=== PATIENT | female | born 1965 | race Caucasian/White ===

== ENCOUNTER 2017-01-03 08:47 | Inpatient (IN) | payer MEDICARE, MEDICAID ==
--- NOTE | 2017-01-03 09:22 | ED ---
Psych HPI - General Source: patient, EMS, RN notes reviewed Mode of arrival: EMS Limitations: no limitations <Barry Godinez - Last Filed: 01/03/17 12:01> <Ry Brito - Last Filed: 01/07/17 15:04> - General Stated Complaint: Anxiety Time Seen by Provider: 01/03/17 08:48 - History of Present Illness Initial Comments: 51-year-old female presented emergency department via EMS for psychiatric services. Patient is having multiple complaints due to flight IDS. Patient states that she just needs to take her Xanax and OxyContin which he normally takes so she states she did not take it because she drank last night. Patient then tells me about her past history with her father, kids. Patient has no physical complaints at this time. Denies any alcohol use since last night. Patient did tell EMS that she smoked marijuana prior to being seen at [facility]. Patient denies headache, dizziness, chest pain, shortness breath, fever, chills. (Barry Godinez) - Related Data Home Medications Medication Instructions Recorded Confirmed ALPRAZolam [Xanax] 0.25 mg PO HS PRN 05/18/15 01/04/17 Albuterol Sulfate [Proair Hfa] 2 puff INHALATION RT-Q6H PRN 05/18/15 01/04/17 Beclomethasone Dipropionate [Qvar 1 puff INHALATION RT-BID 05/18/15 01/04/17 40 mcg/puff] Ibuprofen [Motrin] 400 mg PO Q8HR PRN 11/20/16 01/04/17 oxyCODONE HCL [oxyCODONE HCL ER] 30 mg PO Q12H 11/20/16 01/04/17 Cholecalciferol [Vitamin D3] 1,000 unit PO DAILY 01/03/17 01/04/17 Fish Oil/Dha/Epa [Fish Oil 1,200 1 cap PO DAILY 01/03/17 01/04/17 mg Fish Oil] Multivitamins, Thera [Multivitamin] 1 tab PO DAILY 01/03/17 01/04/17 Allergies Allergy/AdvReac Type Severity Reaction Status Date / Time prednisone AdvReac "KIDNEY Verified 01/04/17 14:30 PAIN" Review of Systems ROS Other: All systems not noted in ROS Statement are negative. <Barry Godinez - Last Filed: 01/03/17 12:01> ROS Other: All systems not noted in ROS Statement are negative. <Ry Brito - Last Filed: 01/07/17 15:04> ROS Statement: Those systems with pertinent positive or pertinent negative responses have been documented in the HPI. Past Medical History Past Medical History: Asthma, COPD Additional Past Medical History / Comment(s): PAD, states chronic pain on r side of body History of Any Multi-Drug Resistant Organisms: None Reported Past Surgical History: Hernia Repair, Hysterectomy, Orthopedic Surgery Additional Past Surgical History / Comment(s): RIGHT KNEE ARTHROSCOPY; ABDOMINAL AORTIC BYPASS, HIATAL HERNIA REPAIR Past Anesthesia/Blood Transfusion Reactions: No Reported Reaction Past Psychological History: No Psychological Hx Reported Smoking Status: Current every day smoker Past Alcohol Use History: None Reported, Occasional Past Drug Use History: Marijuana - Past Family History Mother Additional Family Medical History / Comment(s): ALS <Barry Godinez - Last Filed: 01/03/17 12:01> General Exam Limitations: no limitations General appearance: alert, in no apparent distress Head exam: Present: atraumatic, normocephalic, normal inspection Eye exam: Present: normal appearance, PERRL, EOMI. Absent: scleral icterus, conjunctival injection, periorbital swelling ENT exam: Present: normal exam, mucous membranes moist Neck exam: Present: normal inspection, full ROM. Absent: tenderness, meningismus, lymphadenopathy Respiratory exam: Present: normal lung sounds bilaterally. Absent: respiratory distress, wheezes, rales, rhonchi, stridor Cardiovascular Exam: Present: regular rate, normal rhythm, normal heart sounds. Absent: systolic murmur, diastolic murmur, rubs, gallop, clicks Neurological exam: Present: alert, oriented X3, CN II-XII intact Psychiatric exam: Present: anxious, manic, other (Flight of ideas) Skin exam: Present: warm, dry, intact, normal color. Absent: rash <Barry Godinez - Last Filed: 01/03/17 12:01> Medical Decision Making <Barry Godinez - Last Filed: 01/03/17 12:01> - Lab Data Result diagrams: 01/04/17 08:37 01/04/17 08:37 <Ry Brito - Last Filed: 01/07/17 15:04> - Medical Decision Making I saw this patient in conjunction with the physician child care center assistant director. I performed independent history and physical exam. Agree with case management. (Ry Brito) - Lab Data Lab Results 01/03/17 Range/Units 09:10 Urine Opiates Screen Not Detected (NotDetected) Ur Oxycodone Screen Detected H (NotDetected) Urine Methadone Screen Not Detected (NotDetected) Ur Propoxyphene Screen Not Detected (NotDetected) Ur Barbiturates Screen Not Detected (NotDetected) U Tricyclic Antidepress Not Detected (NotDetected) Ur Phencyclidine Scrn Not Detected (NotDetected) Ur Amphetamines Screen Not Detected (NotDetected) U Methamphetamines Scrn Not Detected (NotDetected) U Benzodiazepines Scrn Not Detected (NotDetected) Urine Cocaine Screen Not Detected (NotDetected) U Marijuana (THC) Screen Detected H (NotDetected) Disposition Time of Disposition: 12:02 <Barry Godinez - Last Filed: 01/03/17 12:01> <Ry Brito - Last Filed: 01/07/17 15:04> Clinical Impression: Manic bipolar I disorder Disposition: ADMITTED IP TO THIS [facility] Condition: Stable
[2017-01-03] MEDS ORDERED: MAGNESIUM HYDROXIDE 2,400 MG/10 ML CUP PO PRN (13:25)
[2017-01-03] MEDS ORDERED: ZIPRASIDONE 20 MG VIAL IM PRN (13:27)
[2017-01-03] MEDS: MULTIVITAMINS, THERA 1 EACH TAB PO SCH (14:27)
[2017-01-03] MEDS: oxyCODONE ER 15 MG TAB.ER.12H PO SCH (14:28)
[2017-01-03] MEDS: LORazepam 1 MG TAB PO PRN (14:28)
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
[2017-01-04] MEDS: oxyCODONE ER 15 MG TAB.ER.12H PO SCH ×3 (01:37→21:00)
[2017-01-04] MEDS ORDERED: BUDESONIDE 1 MG/2 ML NEBU INHALATION SCH (08:00)
[2017-01-04] MEDS: MULTIVITAMINS, THERA 1 EACH TAB PO SCH (08:32)
[2017-01-04 09:09] LABS: Basophils % (A) 1 %; CH 31.3; CHCM 32.5; Eosinophils # (A) 0.2 k/uL (0-0.7); Eosinophils % (A) 4 %; HCT 45.4 % (34.0-46.0); HDW 2.52; HGB 14.7 gm/dL (11.4-16.0); Luc # (Auto) 0.17; Luc % (Auto) 3; Lymphocytes # (A) 1.7 k/uL (1.0-4.8); Lymphocytes % (A) 31 %; MCH 31.3 pg (25.0-35.0); MCHC 32.3 g/dL (31.0-37.0); Mean Platelet Volume 6.8; Monocytes # (A) 0.6 k/uL (0-1.0); Monocytes % (A) 11 %; Neutrophils # (A) 2.8 k/uL (1.3-7.7); Neutrophils % (A) 51 %; RBC 4.69 m/uL (3.80-5.40); RDW 14.6 % (11.5-15.5); WBC 5.6 k/uL (3.8-10.6); WBC (Perox) 5.76
[2017-01-04 09:12] LABS: ALT 40 U/L (9-52); AST 26 U/L (14-36); Alkaline Phosphatase 77 U/L (38-126); Anion Gap 10 mmol/L; Blood Urea Nitrogen 11 mg/dL (7-17); Calcium 9.9 mg/dL (8.4-10.2); Carbon Dioxide 26 mmol/L (22-30); Chloride 105 mmol/L (98-107); Glucose 145 mg/dL (74-99); Non-African American GFR(MDRD) >60 (>60 ml/min/1.73 sqM); Potassium 4.4 mmol/L (3.5-5.1); Sodium 141 mmol/L (137-145); Total Bilirubin 0.7 mg/dL (0.2-1.3); Total Protein 6.8 g/dL (6.3-8.2)
[2017-01-04 09:16] LABS: MCV 96.8 fL (80.0-100.0)
--- NOTE | 2017-01-04 09:33 | P.PN ---
Progress Note - Text Interval history: The patient is found in the hallway she follows me to an interview room. She was admitted to the mental health unit yesterday by Dr. Otto. She is diagnosed with bipolar disorder most recent manic. In reviewing the note it appears the plan is to initiate lithium once lab work is completed. The patient was noted to be pressured have racing thoughts some recent paranoia and other symptoms of giuliana. She reports last night she slept 8 hours staff reported she slept 5. She states she is attending groups and eating meals. She is agreeable to starting lithium but only at a very small dose. Mental status exam: The patient is alert she is seated calmly she is hyperverbal her thought process is often circumstantial she can be tangential at times there is some pressured speech. She does appear animated during our conversation. She is cooperative. She is reporting no thoughts of harming herself or others. Insight and judgment are impaired as she under appreciates the impact of her manic symptoms on her function. There is no verbal or physical aggressiveness. She is endorsing no auditory or visual hallucinations. There may be some paranoid thoughts present. Plan: Lab work was drawn this morning only some results are available. We will go ahead and treat with lithium carbonate 150 mg twice daily. We will review the labs when they returned. She has no history of renal failure or kidney damage. Kidney function in October 2016 was normal. She requires continued hospitalization for her current symptoms of giuliana. We will monitor her for safety and encourage her participation in the milieu. We will monitor her vital signs.
[2017-01-04] MEDS: LITHIUM CARBONATE 150 MG CAP PO SCH ×2 (10:13→21:00)
[2017-01-04] MEDS: ACETAMINOPHEN TAB 325 MG TAB PO PRN ×2 (10:15→20:28)
[2017-01-04] MEDS: FOLIC ACID 1 MG TAB PO SCH (11:40)
[2017-01-04] MEDS: THIAMINE 100 MG TAB PO SCH (11:41)
[2017-01-04 14:28] VITALS: BMI 28.8
[2017-01-04] MEDS: NICOTINE 7MG/24HR PATCH TRANSDERM SCH (17:05)
--- NOTE | 2017-01-04 18:29 | P.HPIM ---
History of Present Illness H&P Date: 01/04/17 Chief Complaint: Alcohol withdrawal 51-year-old female was admitted to the hospital significant paranoia. Patient apparently has significant use of alcohol comes in to the hospital with an episode where patient was manic and had issues with her . Patient's last drink was apparently over 24 hours ago. At this time patient denies having any complaints denies using alcohol denies having any suspicions on her . This was all obtained from medical chart review. Patient currently has a history of COPD. Denies having any complaints of chest pressure difficulty breathing cough abdominal pain urinary urgency frequency nausea vomiting or diarrhea at this time. Patient was started on Ciwa protocol for alcohol withdrawal. At the time of my examination patient's ciwa score would 0. Denies having any suicidal or homicidal ideations at this time. Review of Systems All systems: negative (Noted in HPI) Past Medical History Past Medical History: Asthma, COPD Additional Past Medical History / Comment(s): PAD, states chronic pain on r side of body History of Any Multi-Drug Resistant Organisms: None Reported Past Surgical History: Hernia Repair, Hysterectomy, Orthopedic Surgery Additional Past Surgical History / Comment(s): RIGHT KNEE ARTHROSCOPY; ABDOMINAL AORTIC BYPASS, HIATAL HERNIA REPAIR Past Anesthesia/Blood Transfusion Reactions: No Reported Reaction Past Psychological History: No Psychological Hx Reported Smoking Status: Current every day smoker Past Alcohol Use History: None Reported, Occasional Past Drug Use History: Marijuana - Past Family History Mother Additional Family Medical History / Comment(s): ALS Medications and Allergies Home Medications Medication Instructions Recorded Confirmed Type ALPRAZolam [Xanax] 0.25 mg PO HS PRN 05/18/15 01/04/17 History Albuterol Sulfate [Proair Hfa] 2 puff INHALATION RT-Q6H PRN 05/18/15 01/04/17 History Beclomethasone Dipropionate [Qvar 1 puff INHALATION RT-BID 05/18/15 01/04/17 History 40 mcg/puff] Ibuprofen [Motrin] 400 mg PO Q8HR PRN 11/20/16 01/04/17 History oxyCODONE HCL [oxyCODONE HCL ER] 30 mg PO Q12H 11/20/16 01/04/17 History Cholecalciferol [Vitamin D3] 1,000 unit PO DAILY 01/03/17 01/04/17 History Fish Oil/Dha/Epa [Fish Oil 1,200 1 cap PO DAILY 01/03/17 01/04/17 History mg Fish Oil] Multivitamins, Thera [Multivitamin] 1 tab PO DAILY 01/03/17 01/04/17 History Allergies Allergy/AdvReac Type Severity Reaction Status Date / Time prednisone AdvReac "KIDNEY Verified 01/04/17 14:30 PAIN" Physical Exam Vitals: Vital Signs Temp Pulse Resp BP 01/04/17 01:39 98.4 F 99 18 158/85 Intake and Output 01/04/17 01/04/17 01/04/17 06:59 14:59 22:59 Other: Weight 73.93 kg Patient Weight 01/05/17 06:59 Weight 73.93 kg Physical exam Gen. appearance oriented 3 in no distress Neck is supple no JVD Lungs good air entry clear to auscultation no rhonchi or wheezing Heart S1-S2 heard regular rate and rhythm no murmurs appreciated Abdomen is soft nontender no organomegaly bowel sounds are intact Neurologically cranial nerves II-12 grossly intact no focal motor or sensory deficits noted Deep tendon reflexes within normal limits strength is 5 out of 5 in all 4 extremities Skin no abnormalities appreciated Results CBC & Chem 7: 01/04/17 08:37 01/04/17 08:37 Labs: Abnormal Lab Results - Last 24 Hours (Table) 01/04/17 Range/Units 08:37 Glucose 145 H (74-99) mg/dL Thrombosis Risk Factor Assmnt - Choose All That Apply Each Factor Represents 1 point: Age 41-60 years Other Risk Factors: No Other congenital or acquired thrombophilia - If yes, enter type in comment: No Thrombosis Risk Factor Assessment Total Risk Factor Score: 1 Thrombosis Risk Factor Assessment Level: Low Risk Assessment and Plan Plan: #1 bipolar disorder #2 history of COPD #3 chronic pain syndrome Plan Patient is medically stable. Does not appear to be overtly undergoing any withdrawals. Continue with ciwa scale when necessary. Continue Qvar for COPD maintenance. No further testing is necessary. Thank you for the consultation please call us with any questions. Patient will be seen intermittently as needed.
[2017-01-04] MEDS: BECLOMETHASONE DIP 80 MCG/PUFF INHALER INHALATION SCH (21:52)
[2017-01-04] MEDS: LORazepam 1 MG TAB PO PRN (22:53)
[2017-01-05] MEDS: LITHIUM CARBONATE 150 MG CAP PO SCH ×3 (08:24→21:29)
[2017-01-05] MEDS: MULTIVITAMINS, THERA 1 EACH TAB PO SCH ×2 (08:24→08:49)
[2017-01-05] MEDS: oxyCODONE ER 15 MG TAB.ER.12H PO SCH ×2 (08:25→21:30)
[2017-01-05] MEDS: NICOTINE 7MG/24HR PATCH TRANSDERM SCH (08:25)
[2017-01-05] MEDS: MAG HYDROX/AL HYDROX/SIMETH 30 ML CUP PO PRN (08:49)
[2017-01-05] MEDS: BECLOMETHASONE DIP 80 MCG/PUFF INHALER INHALATION SCH ×2 (08:55→22:11)
--- NOTE | 2017-01-05 10:42 | P.PN ---
Progress Note - Text Interval history: The patient is found in the hallway she follows me to an interview room. She reports some initial nausea with the lithium but states it has are be resolved. We discussed monitoring that further as it could be just a transitional side effect. We discussed the need to likely titrate the lithium further but she wants to maintain at this dose and she is acclimating to it. She spontaneously states she wants her mood to be stable. She reports sleeping all evening nursing document 6 hours. Mental status exam: The patient is alert she is observed throughout the morning going in and out of group and going to her room. She is dressed in her own clothing. She has showered. Speech is spontaneous she is quite verbose she will continue speaking until interrupted. She can be circumstantial and tangential. She describes concerns about her ex- people stealing from her etc. Insight and judgment impaired. She is reporting no suicidal or homicidal ideation. She is endorsing no hallucinations today. She is alert and oriented to person place and date. Overall she continues to demonstrate manic symptoms and appears suspicious. Plan: The patient will continue on the lithium carbonate and we'll likely need to be titrated further. Labs were reviewed BUN/creatinine creatinine are within normal limits. We will continue to encourage her full participation in the milieu. We will monitor her for safety. Vital signs reviewed blood pressure and pulse have been somewhat variable we will continue to follow.
[2017-01-05] MEDS: THIAMINE 100 MG TAB PO SCH (12:05)
[2017-01-05] MEDS: FOLIC ACID 1 MG TAB PO SCH (12:05)
[2017-01-05] MEDS: ACETAMINOPHEN TAB 325 MG TAB PO PRN (16:52)
[2017-01-05] MEDS: LORazepam 1 MG TAB PO PRN (21:30)
[2017-01-06] MEDS: oxyCODONE ER 15 MG TAB.ER.12H PO SCH ×2 (08:01→19:12)
[2017-01-06] MEDS: NICOTINE 7MG/24HR PATCH TRANSDERM SCH (09:09)
[2017-01-06] MEDS: MULTIVITAMINS, THERA 1 EACH TAB PO SCH (09:10)
[2017-01-06] MEDS: LITHIUM CARBONATE 150 MG CAP PO SCH ×2 (09:10→21:18)
[2017-01-06] MEDS: BECLOMETHASONE DIP 80 MCG/PUFF INHALER INHALATION SCH ×2 (09:21→21:12)
[2017-01-06] MEDS: FOLIC ACID 1 MG TAB PO SCH (12:27)
[2017-01-06] MEDS: THIAMINE 100 MG TAB PO SCH (12:27)
[2017-01-06] MEDS: ACETAMINOPHEN TAB 325 MG TAB PO PRN (12:27)
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
[2017-01-06] MEDS: ALBUTEROL INHALER 60 PUFF/8 GM INHALER INHALATION PRN ×2 (16:25→21:11)
[2017-01-06] MEDS: LORazepam 1 MG TAB PO PRN (21:18)
[2017-01-06] MEDS: MAG HYDROX/AL HYDROX/SIMETH 30 ML CUP PO PRN (23:12)
[2017-01-07] MEDS: oxyCODONE ER 15 MG TAB.ER.12H PO SCH ×2 (08:10→20:22)
[2017-01-07] MEDS: LITHIUM CARBONATE 150 MG CAP PO SCH ×2 (08:10→20:21)
[2017-01-07] MEDS: NICOTINE 7MG/24HR PATCH TRANSDERM SCH (08:10)
[2017-01-07] MEDS: MULTIVITAMINS, THERA 1 EACH TAB PO SCH (08:11)
[2017-01-07] MEDS ORDERED: LITHIUM CARBONATE 150 MG CAP PO STA (09:21)
[2017-01-07] MEDS: BECLOMETHASONE DIP 80 MCG/PUFF INHALER INHALATION SCH ×2 (09:28→21:01)
[2017-01-07] MEDS: FOLIC ACID 1 MG TAB PO SCH (12:01)
[2017-01-07] MEDS: ACETAMINOPHEN TAB 325 MG TAB PO PRN (12:01)
[2017-01-07] MEDS: THIAMINE 100 MG TAB PO SCH (12:03)
--- NOTE | 2017-01-07 12:31 | P.PN ---
Progress Note - Text SUBJECTIVE: She denied problems or concerns other than wishing to be discharged. She talked about her her need to resume her life and "find a job." She perseverated on her concerns with her ex-. During the team meeting social services aide described the family meeting from Friday. The meeting was essentially unproductive because the patient was hyperverbal and paranoid. Her daughter denied problems at the home and that the patient's ex- has been stealing and harassing the patient. The social services aide described the patient as having pressured speech, paranoia and tangential thinking. She was more receptive to changes in medication and agreed to an increase in lithium from 150 mg to 300 mg twice a day. OBJECTIVE: She presented as a slightly disheveled appearing 51-year-old woman who was pleasant on approach. She maintained eye contact and attended to interview. She had a bright facial expression. She showed no abnormality of psychomotor activity. Specifically she was not agitated or restless. Her speech was rapid with increased rhythm but normal volume. She had no articulation difficulty. Her affect was elevated and inappropriate to circumstances. She denied suicidal ideation or wishes. She denied depressive cognitions such as hopelessness, helplessness or worthlessness. She ruminated about her ex- and continues to express the belief that he had been stealing from her. She did not express ideas reference. Her thinking was abstract. Associations were coherent and logical. She demonstrated flight of ideas. She denied hallucinations and did not appear to responding to internal stimuli. ASSESSMENT: She continues demonstrate signs and symptoms of hypomania. She has limited insight or understanding of her illness and need for continued mental health treatment. However, she is more receptive to changes in medication and agreed to increase at a dose of lithium. PLAN: Continue inpatient hospitalization due to hypomania and impairment of judgment and thinking. Increase lithium to 300 mg by mouth twice a day. Obtain lithium level at steady state. Encouraged continued inpatient hospitalization; consider involuntary hospitalization if she submits a 3 day notice. Consider an antipsychotic such as Abilify if her hypomania does not resolve with lithium.
[2017-01-07] MEDS: traMADol 50 MG TAB PO PRN (14:08)
--- NOTE | 2017-01-07 15:22 | PN ---
I was reconsulted to see the patient for pain management and the patient is admitted to psychiatric facility for bipolar disorder and possible agitation and psychotic episodes. Patient is complaining of pain everywhere in the body. Patient appears to have chronic pain syndrome and patient is on opiates at this point of time which are not really recommended for chronic pain syndrome. Patient in the past did not tolerate Cymbalta apparently and the ideal medications were chronic pain syndrome. Her neuropathic medications including medication that helped neuropathic pain including Cymbalta or imipramine related medications along with NSAIDs. ( ) Patient is asking for cold and hot compresses which can be done. I will order tramadol for pain but patient is also on ibuprofen. Patient was asked not to take both of the medications, had higher doses on the same day and I do not believe even Tramadol will help her much because of her chronic pain syndrome and opiate dependence. REVIEW OF SYSTEMS: GENERAL: As described in HPI. CARDIOVASCULAR: No chest pain, no orthopnea, no PND, no palpitations. PULMONARY: Denied any shortness of breath. No cough or hemoptysis. GASTROINTESTINAL: No diarrhea, nausea or vomiting. No abdominal pain. Normoactive bowel sounds. NEUROLOGIC: No headaches, no weakness, no numbness. Medications were reviewed. PHYSICAL EXAMINATION: VITAL SIGNS: Temperature 97.8, pulse of 61, respiratory rate of 16, blood pressure 152/67, saturating at 95% on room air. GENERAL: The patient is alert and oriented x3, not in any acute distress. Well developed, well nourished. HEENT: Pupils are round and equally reacting to light. EOMI. No scleral icterus. No conjunctival pallor. Normocephalic, atraumatic. No pharyngeal erythema. No thyromegaly. CARDIOVASCULAR: S1 and S2 present. No murmurs, rubs, or gallops. PULMONARY: Chest is clear to auscultation, no wheezing or crackles. ABDOMEN: Soft, nontender, nondistended, normoactive bowel sounds. No palpable organomegaly. MUSCULOSKELETAL: No joint swelling or deformity. EXTREMITIES: No cyanosis, clubbing, or pedal edema. NEUROLOGICAL: Gross neurological examination did not reveal any focal deficits. SKIN: No rashes. Patient is not on ibuprofen but because of that, patient can take tramadol. Patient is already on Tylenol. LABORATORY DATA: Previous lab data was reviewed. ASSESSMENT AND PLAN: 1. Chronic pain syndrome. Will add tramadol, cold compresses and hot compresses. 2. History of chronic obstructive pulmonary disease without any acute exacerbation. 3. Bipolar disorder, management as per Primary Service.
[2017-01-07] MEDS: ALBUTEROL INHALER 60 PUFF/8 GM INHALER INHALATION PRN ×2 (16:36→21:00)
[2017-01-08] MEDS: traMADol 50 MG TAB PO PRN ×2 (01:45→17:49)
[2017-01-08] MEDS: LITHIUM CARBONATE 150 MG CAP PO SCH ×2 (08:52→20:20)
[2017-01-08] MEDS: MULTIVITAMINS, THERA 1 EACH TAB PO SCH (08:52)
[2017-01-08] MEDS: oxyCODONE ER 15 MG TAB.ER.12H PO SCH ×2 (08:52→20:20)
[2017-01-08] MEDS: NICOTINE 7MG/24HR PATCH TRANSDERM SCH (08:52)
[2017-01-08] MEDS: BECLOMETHASONE DIP 80 MCG/PUFF INHALER INHALATION SCH ×2 (09:05→19:10)
[2017-01-08] MEDS: ALBUTEROL INHALER 60 PUFF/8 GM INHALER INHALATION PRN ×3 (09:05→19:10)
--- NOTE | 2017-01-08 11:57 | P.PN ---
Progress Note - Text SUBJECTIVE: I reviewed the medical record, interviewed Ms. Montanez and discussed her treatment during team meeting. She was expecting to be discharged today. She talked about several issues. Her home needs repair and that if she doesn't have the repairs completed she will "wastes money" with increased heating cost. She has doctor's appointments to keep and she has several bills to pay. She talked about credit card expenses including $3000 on interfere when traveled she flew from [place] to [place] and then to [facility]. She incurred penalties from [facility] to [place] round-trip because she canceled the return trip to go to [place]. She went to [place] because her daughter had gave "December 26." However she never visited with her daughter. When I attempted to clarify the reason she talked about dancing at a club and be unable to find a taxi to visit with her daughter and new grandchild. She left [place] without having visited with the new granddaughter. She was disappointed when I did not agree with her request to be discharged but appeared to understand my explanation that we just increased dose of lithium and we will need to monitor her response. She denied side effects to the increased dose of lithium. OBJECTIVE: She was casually dressed and groomed. She was pleasant on approach and appeared to attend to the interview. She was able to remain seated throughout the interview. She was not agitated or restless. Her speech was spontaneous. The rate was slightly increase but she was not hyperverbal. Her affect was stable and appropriate. Unlike in prior meeting she was not elated or euphoric. She denied suicidal ideation or wishes. She denied feelings of hopelessness or helplessness. She did not express ideas reference or paranoid ideation. Her thinking was concrete, digressive and at times disjointed. She denied hallucinations and did not appear to be responding to internal stimuli. ASSESSMENT: She appears less restless, euphoric and hyperverbal. She continues to show some flight of ideas but no grandiose beliefs. PLAN: Continue lithium 300 mg by mouth twice a day, obtain lithium level at steady state, encourage continued participation in therapeutic groups and activities and evaluate clinical status response to treatment on a daily basis.
[2017-01-08] MEDS: FOLIC ACID 1 MG TAB PO SCH (12:42)
[2017-01-08] MEDS: THIAMINE 100 MG TAB PO SCH (12:43)
[2017-01-08] MEDS: LORazepam 1 MG TAB PO PRN (21:25)
[2017-01-09] MEDS: traMADol 50 MG TAB PO PRN ×3 (00:56→18:35)
[2017-01-09] MEDS: LITHIUM CARBONATE 150 MG CAP PO SCH ×2 (08:03→20:16)
[2017-01-09] MEDS: oxyCODONE ER 15 MG TAB.ER.12H PO SCH ×2 (08:03→20:17)
[2017-01-09] MEDS: NICOTINE 7MG/24HR PATCH TRANSDERM SCH (10:23)
[2017-01-09] MEDS: MULTIVITAMINS, THERA 1 EACH TAB PO SCH (10:24)
[2017-01-09] MEDS: ALBUTEROL INHALER 60 PUFF/8 GM INHALER INHALATION PRN ×2 (11:31→21:25)
[2017-01-09] MEDS: BECLOMETHASONE DIP 80 MCG/PUFF INHALER INHALATION SCH ×2 (11:33→21:25)
[2017-01-09] MEDS: FOLIC ACID 1 MG TAB PO SCH (12:20)
[2017-01-09] MEDS: THIAMINE 100 MG TAB PO SCH (12:21)
--- NOTE | 2017-01-09 14:12 | P.PN ---
Progress Note - Text SUBJECTIVE: Coleen denied problems or concerns. She stated she feels calmer and "more focused". She denied side effects to lithium. She expressed appreciation towards [facility] units treatment staff and alleged that she had known about this service she was present for treatment "several months ago." OBJECTIVE: She was neatly dressed and groomed. She is pleasant on approach and maintained eye contact. She is able to attend forward to the interview. She had a blunted but bright facial expression. She showed no abnormality of psychomotor activity. Her speech had a normal rate, rhythm and volume. Her affect was stable and appropriate to her mood. Her thinking was organized, coherent and goal directed. She denied suicidal ideation or wishes. She denied depressive cognitions such as hopelessness, helplessness and worthlessness. She did not express ideas reference or paranoid ideation. She denied hallucinations and did not appear to be responding to internal stimuli. ASSESSMENT: She appears minimally mentally ill and showed a moderate response to treatment with lithium 600 mg by mouth twice a day. She has no side effects to current dose of lithium. PLAN: Obtain lithium level tomorrow morning and discuss adjusting dose accordingly. Discharge home tomorrow with follow-up through [facility] (we discussed need for psychiatric aftercare during treatment team meeting today).
[2017-01-09 20:19] VITALS: RESP 16
[2017-01-09] MEDS: LORazepam 1 MG TAB PO PRN (21:45)
[2017-01-10] MEDS: traMADol 50 MG TAB PO PRN ×2 (03:10→09:30)
[2017-01-10 07:12] VITALS: BP 137/72; PULSE 69; TEMP 98.1
[2017-01-10] MEDS: MULTIVITAMINS, THERA 1 EACH TAB PO SCH ×2 (08:35→08:42)
[2017-01-10] MEDS: oxyCODONE ER 15 MG TAB.ER.12H PO SCH (08:35)
[2017-01-10] MEDS: NICOTINE 7MG/24HR PATCH TRANSDERM SCH (08:35)
[2017-01-10] MEDS: LITHIUM CARBONATE 150 MG CAP PO SCH (09:29)
[2017-01-10] MEDS: BECLOMETHASONE DIP 80 MCG/PUFF INHALER INHALATION SCH (10:24)
[2017-01-10] MEDS: ALBUTEROL INHALER 60 PUFF/8 GM INHALER INHALATION PRN (10:24)
[2017-01-10] MEDS: THIAMINE 100 MG TAB PO SCH (11:55)
[2017-01-10] MEDS: FOLIC ACID 1 MG TAB PO SCH (11:55)
--- NOTE | 2017-01-10 14:32 | P.DS ---
Providers Date of admission: 01/03/17 13:21 Attending physician: Tad Welsh MD Consults: 01/03/17 13:33 Consult Physician Routine Consulting Provider: Ever Bowden Consult Reason/Comments: H and P Do you want consulting provider notified?: Yes 01/06/17 15:41 Consult Physician Routine Consulting Provider: Alfredo Blair Consult Reason/Comments: continued pain Do you want consulting provider notified?: Yes Primary care physician: Rosi Grove - Discharge Diagnosis(es) (1) Bipolar disorder, most recent episode manic Current Visit: Yes Status: Resolved Priority: High (2) COPD (chronic obstructive pulmonary disease) case management patient Current Visit: Yes Status: Chronic Priority: Medium (3) Chronic pain disorder Current Visit: Yes Status: Chronic Priority: Medium Hospital Course: She has a 51-year-old [place] female who presented to the unit under a petition completed by her daughter but signed voluntarily. She presented with increases of anxiety, paranoia and suspiciousness. She had signs and symptoms consistent with hypomania including decreased need for sleep , racing thoughts, distractibility, paranoid beliefs towards her ex- to the point where she filed a personal protective order against him. During the mental status examination she was hyperverbal, circumstantial and demonstrated pressured speech. She has history of alcohol use and chronic use of prescribed opiate pain medication. Her admission diagnoses included bipolar disorder manic with psychotic features and chronic pain disorder. She agreed to a trial of lithium carbonate and Dr. Regan start her on 150 mg twice a day. We provided a biopsychosocial assessment. The lending consultant reverberatory furnace supervisor completed the physical exam and medical history. The lending consultant diagnosed COPD and chronic pain syndrome. He recommended to continue the prehospital dose of ProAir HFA, Qvar, Motrin, oxycodone, vitamin D3, fish oil and multivitamins. We increased dose of lithium carbonate to 300 mg by mouth twice a day. She showed a decrease in signs and symptoms of hypomania. Her serum lithium level on admission was 0.4. At time of discharge denied thoughts of or suicide. She was not hyperverbal, restless or impulsive. She did not express grandiose or delusional thoughts or beliefs. She expressed a willingness to continue with outpatient treatment and agreed to work with her outpatient provider to monitor and titrate the dose of lithium. The social service worker to arrange for follow-up [facility] and she has appointment with her psychiatric nurse practitioner. Patient Condition at Discharge: Stable Plan - Discharge Summary New Discharge Prescriptions: Calzada Carbonate 300 mg PO BID 30 Days Nicotine 7Mg/24Hr Patch [Habitrol] 1 patch TRANSDERM DAILY 14 Days Discharge Medication List Albuterol Sulfate [Proair Hfa] 2 puff INHALATION RT-Q6H PRN 05/18/15 [History] Beclomethasone Dipropionate [Qvar 40 mcg/puff] 1 puff INHALATION RT-BID [History] Ibuprofen [Motrin] 400 mg PO Q8HR PRN 11/20/16 [History] oxyCODONE HCL [oxyCODONE HCL ER] 30 mg PO Q12H 11/20/16 [History] Cholecalciferol [Vitamin D3] 1,000 unit PO DAILY 01/03/17 [History] Fish Oil/Dha/Epa [Fish Oil 1,200 mg Fish Oil] 1 cap PO DAILY 01/03/17 [History] Multivitamins, Thera [Multivitamin] 1 tab PO DAILY 01/03/17 [History] Calzada Carbonate 300 mg PO BID 30 Days 01/10/17 [Rx] Nicotine 7Mg/24Hr Patch [Habitrol] 1 patch TRANSDERM DAILY 14 Days 01/10/17 [Rx] Follow up Appointment(s)/Referral(s): [facility] [Outside] - 01/14/17 10:00 am (Joseline Jack ) Rosi Grove MD [Primary Care Provider] - 1-2 days Discharge Disposition: HOME SELF-CARE
== END 2017-01-10 15:27 | disposition home or self-care (01) | DRG 885 ==
LOC: EC 08:47 → SUPCPDRO 08:47 → 3MHU 13:21
PROVIDERS: ADMIT Psychiatry & Neurology Psychiatry; ATTEND Psychiatry & Neurology Psychiatry
DX: F31.9 Bipolar disorder, unspecified (principal); F11.20 Opioid dependence, uncomplicated; F10.239 Alcohol dependence with withdrawal, unspecified; F12.90 Cannabis use, unspecified, uncomplicated; F17.200 Nicotine dependence, unspecified, uncomplicated; F41.9 Anxiety disorder, unspecified; G89.4 Chronic pain syndrome; J44.9 Chronic obstructive pulmonary disease, unspecified; J45.909 Unspecified asthma, uncomplicated; Z81.8 Family history of other mental and behavioral disorders; Z91.410 Personal history of adult physical and sexual abuse; Z79.899 Other long term (current) drug therapy
CPT/HCPCS: 80053; 80178; 80306; 82075; 84443; 85025; 94640; 99285

== ENCOUNTER 2018-03-19 17:29 | Observation (INO) | payer MEDICARE, OTHER ==
[2018-03-19] MEDS ORDERED: SODIUM CHLORIDE 0.9% 1,000 ML IV STA (17:39)
[2018-03-19] MEDS ORDERED: methylPREDNISolone SOD SUCCI 125 MG/2 ML VIAL IV STA (17:39)
[2018-03-19] MEDS ORDERED: IPRATROPIUM-ALBUTEROL 3 ML NEB INHALATION STA (17:39)
--- NOTE | 2018-03-19 17:44 | ED ---
SOB HPI <Shankar Lu - Last Filed: 03/19/18 19:00> - General Source: patient, RN notes reviewed, old records reviewed Mode of arrival: EMS Limitations: no limitations <Renu Cochran - Last Filed: 03/19/18 19:16> - General Chief Complaint: Shortness of Breath Stated Complaint: Diff Breathing Time Seen by Provider: 03/19/18 17:35 - History of Present Illness Initial Comments: Patient is a 32-year-old female with history of smoking persist emergency Department chief complaint difficulty breathing. She was diagnosed with pneumonia 2 weeks ago. She was on 10 days of Levaquin. She noticed that last Friday. She reports that over the weekend she started to feel worse. She states that yesterday she returned her primary care providers and they started her on steroids. She is on day 2 of a Medrol Dosepak. She reports that she was having severe difficulty in breathing and her at-home nebulizer treatments were not working. Patient states that she's never had a be intubated or had a BiPAP before. Denies fever or chills. She reports that her sputum is been white frothy. (Renu Cochran) - Related Data Home Medications Medication Instructions Recorded Confirmed Ibuprofen [Motrin] 800 mg PO Q8HR PRN 11/20/16 03/19/18 Cholecalciferol [Vitamin D3] 1,000 unit PO DAILY 01/03/17 03/19/18 Fish Oil/Dha/Epa [Fish Oil 1,200 1 cap PO DAILY 01/03/17 03/19/18 mg Fish Oil] Multivitamins, Thera [Multivitamin 1 tab PO DAILY 01/03/17 03/19/18 (formulary)] ALPRAZolam [Xanax] 0.25 mg PO HS 03/19/18 03/19/18 Albuterol Inhaler [Ventolin Hfa 2 puff INHALATION RT-Q6H PRN 03/19/18 03/19/18 Inhaler] Fluticasone Propionate [Flovent 1 puff INHALATION RT-DAILY 03/19/18 03/19/18 Hfa 44 mcg] Garlic 1 tab PO DAILY 03/19/18 03/19/18 Melatonin 5 mg PO HS 03/19/18 03/19/18 oxyCODONE HCL [oxyCODONE HCL ER] 15 mg PO Q12H 03/19/18 03/19/18 Allergies Allergy/AdvReac Type Severity Reaction Status Date / Time prednisone AdvReac "KIDNEY Verified 03/19/18 19:06 PAIN" Review of Systems ROS Other: All systems not noted in ROS Statement are negative. <Shankar Lu - Last Filed: 03/19/18 19:00> ROS Other: All systems not noted in ROS Statement are negative. <Renu Cochran - Last Filed: 03/19/18 19:16> ROS Statement: Those systems with pertinent positive or pertinent negative responses have been documented in the HPI. Past Medical History Past Medical History: Asthma, COPD, Pneumonia Additional Past Medical History / Comment(s): PAD, states chronic pain on r side of body History of Any Multi-Drug Resistant Organisms: None Reported Past Surgical History: Hernia Repair, Hysterectomy, Orthopedic Surgery Additional Past Surgical History / Comment(s): RIGHT KNEE ARTHROSCOPY; ABDOMINAL AORTIC BYPASS, HIATAL HERNIA REPAIR Past Anesthesia/Blood Transfusion Reactions: No Reported Reaction Past Psychological History: No Psychological Hx Reported Smoking Status: Current every day smoker Past Alcohol Use History: None Reported, Occasional Past Drug Use History: Marijuana - Past Family History Mother Additional Family Medical History / Comment(s): ALS <Renu Cochran - Last Filed: 03/19/18 19:16> General Exam <Shankar Lu - Last Filed: 03/19/18 19:00> Limitations: no limitations General appearance: alert Head exam: Present: atraumatic, normocephalic, normal inspection Eye exam: Present: normal appearance, PERRL, EOMI, conjunctival injection. Absent: scleral icterus, periorbital swelling ENT exam: Present: normal exam, mucous membranes moist Neck exam: Present: normal inspection. Absent: tenderness, meningismus, lymphadenopathy Respiratory exam: Present: wheezes (Diffuse wheezing), rhonchi, decreased breath sounds. Absent: normal lung sounds bilaterally, respiratory distress, rales Cardiovascular Exam: Present: regular rate, normal rhythm, normal heart sounds. Absent: systolic murmur, diastolic murmur, rubs, gallop, clicks GI/Abdominal exam: Present: soft, normal bowel sounds. Absent: distended, tenderness, guarding, rebound, rigid Extremities exam: Present: normal inspection, full ROM, normal capillary refill. Absent: tenderness, pedal edema, joint swelling, calf tenderness Back exam: Present: normal inspection Neurological exam: Present: alert, oriented X3, CN II-XII intact Psychiatric exam: Present: normal affect, normal mood Skin exam: Present: warm, dry, intact, normal color. Absent: rash <Renu Cochran - Last Filed: 03/19/18 19:16> - General Exam Comments Initial Comments: 52-year-old female. Appears in obvious respiratory distress. Tripoding position. (Renu Cochran) Course <Shankar Lu - Last Filed: 03/19/18 19:00> <Renu Cochran - Last Filed: 03/19/18 19:16> Vital Signs 03/19/18 03/19/18 03/19/18 17:30 17:34 17:49 Temperature 97.0 F L Pulse Rate 105 H 92 Respiratory 28 H 24 Rate Blood Pressure 162/85 O2 Sat by Pulse 97 Oximetry 03/19/18 03/19/18 03/19/18 17:50 18:06 18:40 Temperature Pulse Rate 87 82 85 Respiratory 24 22 Rate Blood Pressure 148/70 147/76 O2 Sat by Pulse 96 98 Oximetry - Reevaluation(s) Reevaluation #1: 03/19/18 18:35 Patient was reevaluated this time is resting comfortably in bed. She still on 4 L of oxygen. She reports that her breathing is much improved after a double DuoNeb treatment. Patient continues to have wheezing but is moving air throughout bilateral lung gutierrez. (Renu Cochran) Medical Decision Making - Lab Data Result diagrams: 03/19/18 17:00 03/19/18 17:00 <Shankar Lu - Last Filed: 03/19/18 19:00> - Lab Data Result diagrams: 03/19/18 17:00 03/19/18 17:00 <Renu Cochran - Last Filed: 03/19/18 19:16> - Medical Decision Making Medical decision making; is a 52-year-old female with history of COPD but continues to smoke. The patient can emergency room with shortness of breath. Her home updraft treatments more working. She received several updrafts here. One the O2 was removed pulse ox dropped. Chest x-ray revealed reviewed by radiologist no signs of pneumonia with her signs of COPD type changes. I auscultated the patient's lungs still mild wheezing. The patient be admitted for acute exacerbation of COPD. I spoke with Dr. Quigley on-call for Dr.aaron Easley. Dr. Lu (Shankar Lu) 52-year-old female history smoking presents with shortness of breath. Patient was given IV fluids, IV steroids and laboratory. She did appear to be in moderate respiratory distress and she arrived. She is tripoding. Patient received a double DuoNeb treatment did have some improvement. Patient continued to wheeze however. I removed the oxygen and her O2 sats did change a 95% on room air. Patient's chest x-ray was read to be normal. Lab work was reviewed and unremarkable. Normal wall EKG no evidence of elevated troponin. Patient informed of all these results. Discussed with the concern with scabies acute COPD exacerbation and like to the patient for IV steroids. Patient agrees to admission. All questions answered and return parameters were discussed. (Renu Cochran) - Lab Data Lab Results 03/19/18 03/19/18 03/19/18 Range/Units 17:00 17:00 17:00 WBC 10.3 (3.8-10.6) k/uL RBC 4.94 (3.80-5.40) m/uL Hgb 15.3 (11.4-16.0) gm/dL Hct 45.4 (34.0-46.0) % MCV 91.8 (80.0-100.0) fL MCH 31.0 (25.0-35.0) pg MCHC 33.8 (31.0-37.0) g/dL RDW 13.1 (11.5-15.5) % Plt Count 290 (150-450) k/uL Neutrophils % 71 % Lymphocytes % 23 % Monocytes % 5 % Eosinophils % 1 % Basophils % 0 % Neutrophils # 7.3 (1.3-7.7) k/uL Lymphocytes # 2.4 (1.0-4.8) k/uL Monocytes # 0.5 (0-1.0) k/uL Eosinophils # 0.1 (0-0.7) k/uL Basophils # 0.0 (0-0.2) k/uL PT (9.0-12.0) sec INR (<1.2) APTT (22.0-30.0) sec Sodium 141 (137-145) mmol/L Potassium 4.4 (3.5-5.1) mmol/L Chloride 106 (98-107) mmol/L Carbon Dioxide 22 (22-30) mmol/L Anion Gap 13 mmol/L BUN 13 (7-17) mg/dL Creatinine 0.50 L (0.52-1.04) mg/dL Est GFR (CKD-EPI)AfAm >90 (>60 ml/min/1.73 sqM) Est GFR (CKD-EPI)NonAf >90 (>60 ml/min/1.73 sqM) Glucose 151 H (74-99) mg/dL Plasma Lactic Acid Kalpesh (0.7-2.0) mmol/L Calcium 9.8 (8.4-10.2) mg/dL Magnesium 1.9 (1.6-2.3) mg/dL Total Bilirubin 0.3 (0.2-1.3) mg/dL AST 17 (14-36) U/L ALT 20 (9-52) U/L Alkaline Phosphatase 88 (38-126) U/L Total Creatine Kinase 35 (30-135) U/L CK-MB (CK-2) 0.8 (0.0-2.4) ng/mL CK-MB (CK-2) Rel Index 2.3 Troponin I <0.012 (0.000-0.034) ng/mL NT-Pro-B Natriuret Pep pg/mL Total Protein 7.2 (6.3-8.2) g/dL Albumin 4.4 (3.5-5.0) g/dL 03/19/18 03/19/18 03/19/18 Range/Units 17:00 17:00 17:00 WBC (3.8-10.6) k/uL RBC (3.80-5.40) m/uL Hgb (11.4-16.0) gm/dL Hct (34.0-46.0) % MCV (80.0-100.0) fL MCH (25.0-35.0) pg MCHC (31.0-37.0) g/dL RDW (11.5-15.5) % Plt Count (150-450) k/uL Neutrophils % % Lymphocytes % % Monocytes % % Eosinophils % % Basophils % % Neutrophils # (1.3-7.7) k/uL Lymphocytes # (1.0-4.8) k/uL Monocytes # (0-1.0) k/uL Eosinophils # (0-0.7) k/uL Basophils # (0-0.2) k/uL PT 10.1 (9.0-12.0) sec INR 1.0 (<1.2) APTT 22.1 (22.0-30.0) sec Sodium (137-145) mmol/L Potassium (3.5-5.1) mmol/L Chloride (98-107) mmol/L Carbon Dioxide (22-30) mmol/L Anion Gap mmol/L BUN (7-17) mg/dL Creatinine (0.52-1.04) mg/dL Est GFR (CKD-EPI)AfAm (>60 ml/min/1.73 sqM) Est GFR (CKD-EPI)NonAf (>60 ml/min/1.73 sqM) Glucose (74-99) mg/dL Plasma Lactic Acid Kalpesh 1.6 (0.7-2.0) mmol/L Calcium (8.4-10.2) mg/dL Magnesium (1.6-2.3) mg/dL Total Bilirubin (0.2-1.3) mg/dL AST (14-36) U/L ALT (9-52) U/L Alkaline Phosphatase (38-126) U/L Total Creatine Kinase (30-135) U/L CK-MB (CK-2) (0.0-2.4) ng/mL CK-MB (CK-2) Rel Index Troponin I (0.000-0.034) ng/mL NT-Pro-B Natriuret Pep 198 pg/mL Total Protein (6.3-8.2) g/dL Albumin (3.5-5.0) g/dL 03/19/18 19:02 EKG shows sinus rhythm with PVCs. Possible left atrial enlargement. Borderline EKG. Ventricular rate of 81 bpm. TX interval is 144 ms. QRS duration 88 ms. QT QTc is 364/422 ms. (Renu Cochran) Disposition <Shankar Lu - Last Filed: 03/19/18 19:00> Is patient prescribed a controlled substance at d/c from ED?: No If prescribed controlled substance>3 days was MAPS reviewed?: No When asked, does pt state using other controlled substances?: No Time of Disposition: 19:16 <Renu Cochran - Last Filed: 03/19/18 19:16> Clinical Impression: COPD exacerbation Disposition: ADMITTED IP TO THIS HOSP Condition: Stable Referrals: Joaquim Easley MD [Primary Care Provider] - 1-2 days
[2018-03-19 17:59] LABS: Basophils % (A) 0 %; Eosinophils # (A) 0.1 k/uL (0-0.7); Eosinophils % (A) 1 %; HCT 45.4 % (34.0-46.0); HGB 15.3 gm/dL (11.4-16.0); Lymphocytes # (A) 2.4 k/uL (1.0-4.8); Lymphocytes % (A) 23 %; MCHC 33.8 g/dL (31.0-37.0); MCV 91.8 fL (80.0-100.0); Mean Platelet Volume 7.6; Monocytes # (A) 0.5 k/uL (0-1.0); Monocytes % (A) 5 %; Neutrophils # (A) 7.3 k/uL (1.3-7.7); Neutrophils % (A) 71 %; Platelet Count 290 k/uL (150-450); RBC 4.94 m/uL (3.80-5.40); RDW 13.1 % (11.5-15.5); WBC 10.3 k/uL (3.8-10.6)
[2018-03-19 18:14] LABS: ALT 20 U/L (9-52); AST 17 U/L (14-36); Albumin 4.4 g/dL (3.5-5.0); Alkaline Phosphatase 88 U/L (38-126); Anion Gap 13 mmol/L; Blood Urea Nitrogen 13 mg/dL (7-17); Calcium 9.8 mg/dL (8.4-10.2); Carbon Dioxide 22 mmol/L (22-30); Chloride 106 mmol/L (98-107); Creatine Kinase 35 U/L (30-135); Glucose 151 mg/dL (74-99); Magnesium 1.9 mg/dL (1.6-2.3); Partial Thromboplastin Time 22.1 sec (22.0-30.0); Potassium 4.4 mmol/L (3.5-5.1); Prothrombin Time 10.1 sec (9.0-12.0); Sodium 141 mmol/L (137-145); Total Bilirubin 0.3 mg/dL (0.2-1.3); Total Protein 7.2 g/dL (6.3-8.2)
[2018-03-19 18:27] LABS: Creatine Kinase MB 0.8 ng/mL (0.0-2.4); Troponin I <0.012 ng/mL (0.000-0.034)
--- NOTE | 2018-03-19 18:44 | XR ---
EXAMINATION TYPE: XR chest 2V DATE OF EXAM: 03/19/2018 COMPARISON: 10/27/2014 HISTORY: Short of breath TECHNIQUE: Frontal and lateral views of the chest are obtained. FINDINGS: Heart and mediastinum are normal. Lungs are clear. Diaphragm is normal. Bony thorax is int act. There are chest leads. IMPRESSION: Normal chest. No change.
[2018-03-19] MEDS ORDERED: KETOROLAC 30 MG/ML 1 ML VIAL IVP PRN (19:17)
[2018-03-19] MEDS ORDERED: IBUPROFEN 400 MG TAB PO PRN ×2 (19:17→19:19)
[2018-03-19] MEDS ORDERED: ONDANSETRON 4 MG/2 ML VIAL IVP PRN (19:17)
[2018-03-19] MEDS ORDERED: NALOXONE 0.4 MG/ML 1 ML VIAL IV PRN (19:17)
[2018-03-19] MEDS ORDERED: ALBUTEROL NEBULIZED 2.5 MG/3 ML INHALATION PRN (19:19)
[2018-03-19] MEDS ORDERED: IPRATROPIUM-ALBUTEROL 3 ML NEB INHALATION PRN (19:19)
[2018-03-19] MEDS ORDERED: PROMETHAZ-COD 6.25-10 MG/5 ML 5 ML CUP PO PRN (19:19)
[2018-03-19] MEDS ORDERED: SODIUM CHLORIDE 0.9% 1,000 ML IV SCH (19:30)
[2018-03-19] MEDS: BUDESONIDE 0.5 MG/2 ML NEBU INHALATION SCH (19:47)
[2018-03-19 20:35] LABS: Glucose,Whole Blood 159 mg/dL (75-99)
[2018-03-19] MEDS: oxyCODONE ER 15 MG TAB.ER.12H PO SCH (21:00)
[2018-03-19] MEDS: ALPRAZolam 0.25 MG TAB PO SCH (21:01)
[2018-03-19] MEDS: guaiFENesin 600 MG TABLET.ER PO SCH (21:02)
[2018-03-19] MEDS: MELATONIN 5 MG TABLET PO SCH (21:02)
[2018-03-19 21:28] VITALS: BMI 24.3
[2018-03-20] MEDS: SODIUM CHLORIDE 0.9% 1,000 ML IV SCH ×2 (00:15→23:32)
[2018-03-20] MEDS: methylPREDNISolone SOD SUCCI 125 MG/2 ML VIAL IV SCH ×2 (00:15→05:51)
[2018-03-20] MEDS: ACETAMINOPHEN TAB 325 MG TAB PO PRN ×2 (00:21→10:13)
[2018-03-20 07:24] LABS: Glucose,Whole Blood 135 mg/dL (75-99)
[2018-03-20] MEDS ORDERED: FLUTICASONE PROPIONATE INHALATION SCH (08:00)
[2018-03-20] MEDS: oxyCODONE ER 15 MG TAB.ER.12H PO SCH ×2 (08:25→20:40)
[2018-03-20] MEDS: LEVOFLOXACIN 500 MG TAB PO SCH (08:26)
[2018-03-20] MEDS: guaiFENesin 600 MG TABLET.ER PO SCH ×2 (08:26→20:39)
[2018-03-20] MEDS: INSULIN ASPART 100 UNIT/ML 1 ML 10 ML VIAL SQ SCH ×5 (08:26→20:40)
[2018-03-20] MEDS: BUDESONIDE 0.5 MG/2 ML NEBU INHALATION SCH ×2 (08:45→19:58)
[2018-03-20] MEDS ORDERED: NON-FORMULARY DRUG (Fish Oil/Dha/Epa [Fish Oil 1,200 Mg Fish Oil] 1 CAP) PO SCH (09:00)
[2018-03-20] MEDS ORDERED: NON-FORMULARY DRUG (Garlic [Garlic] 1 TAB) PO SCH (09:00)
[2018-03-20] MEDS ORDERED: TEMAZEPAM 15 MG CAP PO PRN (10:35)
[2018-03-20 11:11] LABS: Glucose,Whole Blood 116 mg/dL (75-99)
--- NOTE | 2018-03-20 11:22 | P.CNPUL ---
<Franny Palmer E - Last Filed: 03/20/18 11:08> History of Present Illness Consult date: 03/20/18 Requesting physician: Ever Bowden Reason for consult: COPD Chief complaint: shortness of breath History of present illness: This is a 52-year-old patient being seen examined and evaluated today for consultation. This patient came into the emergency room with complaints of shortness of breath that had been progressing in severity over the last few days. The patient just completed a round of antibiotics and did not get any better so went to her primary care physician 2 days ago and was restarted on antibiotics as well as steroids. She was only able to take approximately 2 doses before she came into the emergency room for further evaluation and treatment. Patient does state she has not had any fevers however has experienced chills. She has been short of breath with exertion and activity has a productive cough with white frothy sputum. She did require supplemental oxygen up to 4 L for oxygen desaturations in the emergency room to 85%. She has a current every day smoker and smokes approximately half a pack per day for over 30 years. Patient was also having difficulty with getting albuterol nebulizer treatments approved through her insurance in the outpatient setting. Chest x-ray is reviewed and shows no acute processes at this time. Patient was started on Levaquin steroids and DuoNeb and budesonide. Upon examination the patient is resting up in bed on 2L of supplemental oxygen via nasal cannula.. She continues with her shortness of breath cough and congestion as well as generalized malaise. Review of Systems 14 point review of system was completed and is negative unless noted above in the HPI Past Medical History Past Medical History: Asthma, COPD, Pneumonia Additional Past Medical History / Comment(s): PAD, states chronic pain on r side of body History of Any Multi-Drug Resistant Organisms: None Reported Past Surgical History: Cholecystectomy, Hernia Repair, Hysterectomy, Orthopedic Surgery Additional Past Surgical History / Comment(s): RIGHT KNEE ARTHROSCOPY; aortic abdominal stent-2006, ABDOMINAL AORTIC BYPASS-2009, HIATAL HERNIA REPAIR with mesh- 2011, choleycystectomy-2010, hysterectomy. Past Anesthesia/Blood Transfusion Reactions: No Reported Reaction Past Psychological History: No Psychological Hx Reported Smoking Status: Smoker, current status unknown Past Alcohol Use History: None Reported, Occasional Additional Past Alcohol Use History / Comment(s): pt states she has quit in the past nut had a ciggarette here and there and did have one day of admission. unclear as to pts actual smoking status at this time. Past Drug Use History: Marijuana - Past Family History Father Family Medical History: Cancer Additional Family Medical History / Comment(s): passed from lung ca Mother Additional Family Medical History / Comment(s): ALS Medications and Allergies Home Medications Medication Instructions Recorded Confirmed Type Ibuprofen [Motrin] 800 mg PO Q8HR PRN 11/20/16 03/19/18 History Cholecalciferol [Vitamin D3] 1,000 unit PO DAILY 01/03/17 03/19/18 History Fish Oil/Dha/Epa [Fish Oil 1,200 1 cap PO DAILY 01/03/17 03/19/18 History mg Fish Oil] Multivitamins, Thera [Multivitamin 1 tab PO DAILY 01/03/17 03/19/18 History (formulary)] ALPRAZolam [Xanax] 0.25 mg PO HS 03/19/18 03/19/18 History Albuterol Inhaler [Ventolin Hfa 2 puff INHALATION RT-Q6H PRN 03/19/18 03/19/18 History Inhaler] Fluticasone Propionate [Flovent 1 puff INHALATION RT-DAILY 03/19/18 03/19/18 History Hfa 44 mcg] Garlic 1 tab PO DAILY 03/19/18 03/19/18 History Melatonin 5 mg PO HS 03/19/18 03/19/18 History oxyCODONE HCL [oxyCODONE HCL ER] 15 mg PO Q12H 03/19/18 03/19/18 History Allergies Allergy/AdvReac Type Severity Reaction Status Date / Time prednisone AdvReac "KIDNEY Verified 03/19/18 19:06 PAIN" Physical Exam Vitals: Vital Signs Temp Pulse Pulse Resp BP BP Pulse Ox 03/20/18 08:55 77 03/20/18 08:45 76 99 03/20/18 07:22 97.9 F 59 L 18 129/70 98 03/19/18 21:36 98.3 F 85 16 135/65 99 03/19/18 19:46 98.7 F 74 18 149/69 98 03/19/18 18:40 85 22 147/76 98 03/19/18 18:06 82 03/19/18 17:50 87 24 148/70 96 03/19/18 17:49 92 03/19/18 17:34 24 03/19/18 17:30 97.0 F L 105 H 28 H 162/85 97 Intake and Output 03/19/18 03/20/18 03/20/18 22:59 06:59 14:59 Intake Total 1000 Balance 1000 Intake: Amount of Fluid Infused ( 1000 ml) Other: Voiding Method Toilet # Voids 1 1 Weight 74.843 kg 74.843 kg GENERAL EXAM: Alert, comfortable in no apparent distress. HEAD: Normocephalic. EYES: Normal reaction of pupils, equal size. NOSE: Clear with pink turbinates. THROAT: No erythema or exudates. NECK: No masses, no JVD. CHEST: No chest wall deformity. LUNGS: Lungs noted to be diminished throughout with him expiratory wheezing noted.. CVS: S1 and S2 normal with no audible mumurs, regular rhythm. ABDOMEN: No hepatosplenomegaly, normal bowel sounds, no guarding or rigidity. EXTREMITIES: No edema noted, pedal pulses palpable. CENTRAL NERVOUS SYSTEM: No focal deficits, tone is normal in all 4 extremities. Results - Laboratory Findings CBC and BMP: 03/19/18 17:00 03/19/18 17:00 PT/INR, D-dimer PT 10.1 sec (9.0-12.0) 03/19/18 17:00 INR 1.0 (<1.2) 03/19/18 17:00 Abnormal lab findings: Abnormal Labs 03/19/18 03/19/18 03/20/18 17:00 20:32 07:22 Creatinine 0.50 L Glucose 151 H POC Glucose (mg/dL) 159 H 135 H - Diagnostic Findings Chest x-ray: report reviewed, image reviewed Assessment and Plan Assessment: Assessment Acute exacerbation of COPD Acute hypoxic respiratory failure requiring supplemental oxygen Tracheobronchitis History of chronic persistent asthma, baseline unknown Nicotine dependence Plan Medications have been reviewed and will be continued as ordered. Obtain sputum culture and flu swab. Continue with antibiotics and steroids. Continue with pulmonary hygiene, coughing and deep breathing exercises, and supportive care. Supplemental oxygen to maintain oxygen saturations of 92% or better. Initiate and encourage incentive spirometer. Add flutter valve. Smoking cessation discussed. Continue nebulizer treatments. GI and DVT prophylaxis. We will continue to monitor labs/results and adjust treatment as necessary. Further recommendations pending. Patient with constipation we will continue to follow this patient with you. I performed an examination of the patient and discussed their management with the nurse practitioner. I have reviewed the nurse practitioner's note and agree with the documented findings and plan of care. <Amina Quinn A - Last Filed: 03/20/18 14:25> Physical Exam Osteopathic Statement: *. No significant issues noted on an osteopathic structural exam other than those noted in the History and Physical/Consult. Vitals: Vital Signs Temp Pulse Pulse Resp BP BP Pulse Ox 03/20/18 13:00 79 03/20/18 12:49 78 03/20/18 08:55 77 03/20/18 08:45 76 99 03/20/18 07:22 97.9 F 59 L 18 129/70 98 03/19/18 21:36 98.3 F 85 16 135/65 99 03/19/18 19:46 98.7 F 74 18 149/69 98 03/19/18 18:40 85 22 147/76 98 03/19/18 18:06 82 03/19/18 17:50 87 24 148/70 96 03/19/18 17:49 92 03/19/18 17:34 24 03/19/18 17:30 97.0 F L 105 H 28 H 162/85 97 Intake and Output 03/19/18 03/20/18 03/20/18 22:59 06:59 14:59 Intake Total 1000 1100 Balance 1000 1100 Intake: Amount of Fluid Infused ( 1000 ml) Intake, IV Titration 240 Amount Sodium Chloride 0.9% 1, 240 000 ml @ 20 mls/hr IV . Q24H [facility] Rx#:[id number] Oral 860 Other: Voiding Method Toilet # Voids 1 3 Weight 74.843 kg 74.843 kg Results - Laboratory Findings CBC and BMP: 03/19/18 17:00 03/19/18 17:00 PT/INR, D-dimer PT 10.1 sec (9.0-12.0) 03/19/18 17:00 INR 1.0 (<1.2) 03/19/18 17:00 Abnormal lab findings: Abnormal Labs 03/19/18 03/19/18 03/20/18 17:00 20:32 07:22 Creatinine 0.50 L Glucose 151 H POC Glucose (mg/dL) 159 H 135 H 03/20/18 11:10 Creatinine Glucose POC Glucose (mg/dL) 116 H Assessment and Plan Assessment: Patient seen and examined. Patient states her breathing is starting to improve. She does note that she was using Ventolin and her nebulizer quite frequently. She states she took about 5 doses in a row because she thought she was going to yesterday. We discussed the side effects of these medications. We will start controller medication prior to her discharge. Ronda Mcgovern, Pulmicort, IS, Solumedrol. Levaquin. Check IgE/RAST/HP, A1AT. Patient does have quite elevated eosinophil count in the past, upwards of 600. She may benefit from a biologic outpatient if she can't be controlled with inhaler medications.
[2018-03-20] MEDS ORDERED: CHOLECALCIFEROL 1,000 UNIT TAB PO SCH (12:00)
[2018-03-20] MEDS ORDERED: MULTIVITAMINS, THERA 1 EACH TAB PO SCH (12:00)
[2018-03-20] MEDS: IPRATROPIUM-ALBUTEROL 3 ML NEB INHALATION SCH ×2 (12:49→19:58)
[2018-03-20] MEDS: HEPARIN SODIUM,PORCINE 5,000 UNIT/ML 1 ML VIAL SQ SCH ×3 (12:56→23:59)
[2018-03-20] MEDS: PANTOPRAZOLE 40 MG/10 ML VIAL IVP SCH (12:57)
[2018-03-20] MEDS: methylPREDNISolone SOD SUCCI 40 MG/ML 1 ML VIAL IV SCH ×2 (15:50→23:58)
[2018-03-20 16:59] LABS: Glucose,Whole Blood 107 mg/dL (75-99)
--- NOTE | 2018-03-20 18:02 | HP ---
HISTORY AND PHYSICAL I am covering for Dr. Joaquim Easley. CHIEF COMPLAINT: Shortness of breath. HISTORY OF PRESENT ILLNESS: This 52-year-old woman with a past medical history of asthma, COPD, history of pneumonia, history of peripheral artery disease, history of cholecystectomy, hernia repair, history of hysterectomy, being followed by Dr. Joaquim Easley in the outpatient setting, was not feeling well over the past several weeks. The patient had at least 2 courses of antibiotics for pneumonia. Patient had increasing shortness of breath, and last night the patient had significantly increased shortness of breath. The patient came to [facility] and was admitted for further evaluation and treatment. Chest x-ray showed no evidence of pneumonia. The patient is on steroids and antibiotics at this time. Dr. Quinn is following the patient closely. PAST MEDICAL HISTORY: 1. History of asthma. 2. COPD. 3. Pneumonia. 4. Peripheral artery disease. 5. Cholecystectomy. HOME MEDICATIONS: 1. Flovent 1 puff daily. 2. Melatonin 5 mg at bedtime. 3. Motrin 800 mg q.8 p.r.n. 4. Garlique 1 tablet p.o. daily. 5. Ventolin HFA 1-2 puffs q.6 p.r.n. 6. Xanax 0.25 at bedtime. 7. Oxycodone 15 mg p.o. b.i.d. 8. Multivitamins 1 p.o. daily. 9. Fish oil 1.2 grams p.o. daily. 10.Vitamin D3 1000 daily. ALLERGIES: PREDNISONE. FAMILY HISTORY: History of cancer, ALS. SOCIAL HISTORY: History of smoking. History of THC (marijuana). REVIEW OF SYSTEMS: ENT: No diminished hearing. No diminished vision. CARDIOVASCULAR SYSTEM: As mentioned earlier. RESPIRATORY SYSTEM: As mentioned earlier. GI: No nausea, vomiting. : No dysuria or retention. NERVOUS SYSTEM: No numbness, weakness. ALLERGY/IMMUNOLOGY: No asthma, hayfever. MUSCULOSKELETAL: As mentioned earlier. HEMATOLOGY/ONCOLOGY: No history of anemia. ENDOCRINE: No history of diabetes, hypothyroidism. CONSTITUTIONAL: As mentioned earlier. DERMATOLOGY: Negative. RHEUMATOLOGY: Negative. PSYCHIATRY: As mentioned earlier. PHYSICAL EXAMINATION: Patient is alert, oriented x3. Pulse 79, blood pressure 116/56, respiration 18, temperature 97.8, pulse ox 97% on 2 L. HEENT: Conjunctivae normal. Oral mucosa moist. NECK: No jugular venous distention. No carotid bruit. No lymph node enlargement. CARDIOVASCULAR SYSTEM: S1, S2 muffled. No S3. No S4. RESPIRATORY SYSTEM: Breath sounds diminished at the bases. Bilateral scattered rhonchi and expiratory wheezing and crackles. ABDOMEN: Soft, non-tender. No mass palpable. LEGS: No edema. No swelling. NERVOUS SYSTEM: Higher functions as mentioned earlier. Moves all 4 limbs. No focal motor or sensory deficit. LYMPHATICS: No lymph node palpable in neck, axillae or groin. SKIN: No ulcer, rash, bleeding. LABS: CBC within normal limits. Glucose 151, 159, 135, 116. Influenza is negative. ASSESSMENT: 1. Chronic obstructive pulmonary disease, acute exacerbation, with acute purulent tracheobronchitis. 2. History of asthma. 3. History of pneumonia. 4. History of peripheral vascular disease. 5. History of cholecystectomy. 6. History of right knee arthroscopy. 7. History of nicotine dependence. 8. FULL CODE. RECOMMENDATIONS AND DISCUSSION: In this 52-year-old woman who presented with multiple complex medical issues, we will monitor the patient closely, continue the current medication, continue with symptomatic treatment. Otherwise at this time I would recommend IV steroids and broad-spectrum IV antibiotics. We will continue to monitor. Otherwise, prognosis is guarded because of multiple complex medical issues. Further recommendations to follow. See orders for further details. We will cut down the dose of steroids to 40 mg IV q.8. Further recommendations to follow. MMODL / IJN: [id number] /
[2018-03-20 20:10] LABS: Glucose,Whole Blood 177 mg/dL (75-99)
[2018-03-20] MEDS: ALPRAZolam 0.25 MG TAB PO SCH (20:39)
[2018-03-20] MEDS: MELATONIN 5 MG TABLET PO SCH (20:39)
[2018-03-20 20:49] VITALS: RESP 16; TEMP 98
[2018-03-20] MEDS ORDERED: MONTELUKAST 10 MG TAB PO SCH (21:00)
[2018-03-21] MEDS: ACETAMINOPHEN TAB 325 MG TAB PO PRN (02:50)
[2018-03-21] MEDS: BUDESONIDE 0.5 MG/2 ML NEBU INHALATION SCH (07:24)
[2018-03-21] MEDS: IPRATROPIUM-ALBUTEROL 3 ML NEB INHALATION SCH ×2 (07:26→13:19)
[2018-03-21 07:29] LABS: Glucose,Whole Blood 120 mg/dL (75-99)
[2018-03-21 07:53] LABS: Basophils % (A) 0 %; Eosinophils % (A) 0 %; HCT 41.2 % (34.0-46.0); HGB 13.9 gm/dL (11.4-16.0); Lymphocytes # (A) 1.2 k/uL (1.0-4.8); Lymphocytes % (A) 11 %; MCH 31.3 pg (25.0-35.0); MCHC 33.7 g/dL (31.0-37.0); MCV 92.7 fL (80.0-100.0); Mean Platelet Volume 7.5; Monocytes # (A) 0.4 k/uL (0-1.0); Monocytes % (A) 4 %; Neutrophils # (A) 8.9 k/uL (1.3-7.7); Neutrophils % (A) 84 %; Platelet Count 265 k/uL (150-450); RBC 4.44 m/uL (3.80-5.40); RDW 13.3 % (11.5-15.5); WBC 10.7 k/uL (3.8-10.6)
[2018-03-21 08:10] LABS: Anion Gap 8 mmol/L; Blood Urea Nitrogen 18 mg/dL (7-17); Calcium 9.6 mg/dL (8.4-10.2); Carbon Dioxide 23 mmol/L (22-30); Chloride 109 mmol/L (98-107); Glucose 112 mg/dL (74-99); Potassium 4.6 mmol/L (3.5-5.1); Sodium 140 mmol/L (137-145)
[2018-03-21] MEDS: guaiFENesin 600 MG TABLET.ER PO SCH (08:28)
[2018-03-21] MEDS: PANTOPRAZOLE 40 MG/10 ML VIAL IVP SCH (08:28)
[2018-03-21] MEDS: methylPREDNISolone SOD SUCCI 40 MG/ML 1 ML VIAL IV SCH (08:28)
[2018-03-21] MEDS: HEPARIN SODIUM,PORCINE 5,000 UNIT/ML 1 ML VIAL SQ SCH (08:29)
[2018-03-21] MEDS: LEVOFLOXACIN 500 MG TAB PO SCH (08:29)
[2018-03-21] MEDS: oxyCODONE ER 15 MG TAB.ER.12H PO SCH (08:41)
[2018-03-21 10:05] VITALS: PULSE 97
[2018-03-21 10:40] VITALS: BP 105/68
[2018-03-21] MEDS: INSULIN ASPART 100 UNIT/ML 1 ML 10 ML VIAL SQ SCH ×2 (10:59→14:01)
[2018-03-21 12:07] LABS: Glucose,Whole Blood 125 mg/dL (75-99)
--- NOTE | 2018-03-21 12:12 | PN ---
PROGRESS NOTE DATE OF SERVICE: 03/21/2018. She is less short of breath and is doing fairly well overall. PHYSICAL EXAMINATION: Her respiratory rate is 16, pulse rate 97, temperature 98 degrees Fahrenheit, blood pressure 105/68, O2 saturation on room is 96%. HEENT: Unremarkable. Chest reveals fine crackles in the bases. Cardiovascular system reveals a S1, S2. No S3, no S4. No murmurs. Abdomen is soft. There is no pedal edema. IMPRESSION: At this time: 1. Asthma with acute exacerbation. 2. Possible chronic obstructive pulmonary disease. 3. 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 At this point in time agree with possible discharge planning on a tapering dose of steroids. The patient has questionable allergy to prednisone and may benefit from Medrol taper with close outpatient follow up with Dr. Amina Quinn. Would continue Levaquin. Increase her activity level. Depending on how she does we should make further changes to her care. MMODL / IJN: [id number] /
--- NOTE | 2018-03-21 12:20 | P.DS ---
Providers Date of admission: 03/19/18 19:16 Expected date of discharge: 03/21/18 Attending physician: Marc Del Castillo Consults: 03/20/18 10:33 Consult Physician Routine Consulting Provider: Cory Navas Consult Reason/Comments: COPD exacerbation Do you want consulting provider notified?: Yes Primary care physician: Joaquim Easley Hospital Course: Final Diagnoses: 1. Acute COPD exacerbation with acute tracheobronchitis 2. Acute hypoxic respiratory failure, secondary to the above, improving 3. Nicotine dependence 4. History of chronic persistent asthma HOSPITAL COURSE: This a 52-year-old female admitted with acute COPD exacerbation , hypoxic respiratory failure and multiple other medical issues including recent pneumonia. Chest x-ray showed no evidence of pneumonia. Evaluated by pulmonary. Maintained on antibiotics, nebulized bronchodilators, systemic steroids, flutter valve. Significant clinical improvement. Patient has been cleared by pulmonary for discharge. Patient is being discharged home in a stable condition with guarded prognosis. Physical exam:GEN: VSS, alert and oriented 3, no acute distress.CV: Regular S1 and S2, no edema. LUNGS: Diminished, no wheezing. ABD: Soft, nontender, positive bowel sounds. NEURO: No focal deficits. The impression and plan of care has been dictated as directed. Dr.: I performed a history and examination of this patient, discussed the same with the dictator. I agree with the dictator's note ,documented as a scribe. Any additional findings or plans will be noted. Time taken: 35 minutes Patient Condition at Discharge: Stable Plan - Discharge Summary Discharge Rx Participant: No New Discharge Prescriptions: New guaiFENesin [Mucinex] 1,200 mg PO Q12HR tablet.er Levofloxacin [Levaquin] 500 mg PO DAILY #5 tab Montelukast [Singulair] 10 mg PO HS #30 tab Promethaz-Cod 6.25-10 mg/5 ml [Phenergan with Codeine] 5 ml PO Q6H PRN #100 ml PRN Reason: Cough Omeprazole [PriLOSEC] 20 mg PO AC-BRKFST #15 cap predniSONE 10 mg PO DIRECTED #30 tab Nicotine 14Mg/24Hr Patch [Habitrol] 1 patch TRANSDERM DAILY #30 patch Continue Ibuprofen [Motrin] 800 mg PO Q8HR PRN PRN Reason: Mild Pain Multivitamins, Thera [Multivitamin (formulary)] 1 tab PO DAILY Fish Oil/Dha/Epa [Fish Oil 1,200 mg Fish Oil] 1 cap PO DAILY Cholecalciferol [Vitamin D3] 1,000 unit PO DAILY Melatonin 5 mg PO HS Garlic 1 tab PO DAILY ALPRAZolam [Xanax] 0.25 mg PO HS oxyCODONE HCL [oxyCODONE HCL ER] 15 mg PO Q12H Fluticasone Propionate [Flovent Hfa 44 mcg] 1 puff INHALATION RT-DAILY Changed Albuterol Inhaler [Ventolin Hfa Inhaler] 2 puff INHALATION QID #0 Discharge Medication List Ibuprofen [Motrin] 800 mg PO Q8HR PRN 11/20/16 [History] Cholecalciferol [Vitamin D3] 1,000 unit PO DAILY 01/03/17 [History] Fish Oil/Dha/Epa [Fish Oil 1,200 mg Fish Oil] 1 cap PO DAILY 01/03/17 [History] Multivitamins, Thera [Multivitamin (formulary)] 1 tab PO DAILY 01/03/17 [History ] ALPRAZolam [Xanax] 0.25 mg PO HS 03/19/18 [History] Fluticasone Propionate [Flovent Hfa 44 mcg] 1 puff INHALATION RT-DAILY 03/19/18 [History] Garlic 1 tab PO DAILY 03/19/18 [History] Melatonin 5 mg PO HS 03/19/18 [History] oxyCODONE HCL [oxyCODONE HCL ER] 15 mg PO Q12H 03/19/18 [History] Albuterol Inhaler [Ventolin Hfa Inhaler] 2 puff INHALATION QID #0 03/21/18 [Rx] Levofloxacin [Levaquin] 500 mg PO DAILY #5 tab 03/21/18 [Rx] Montelukast [Singulair] 10 mg PO HS #30 tab 03/21/18 [Rx] Nicotine 14Mg/24Hr Patch [Habitrol] 1 patch TRANSDERM DAILY #30 patch 03/21/18 [ Rx] Omeprazole [PriLOSEC] 20 mg PO AC-BRKFST #15 cap 03/21/18 [Rx] Promethaz-Cod 6.25-10 mg/5 ml [Phenergan with Codeine] 5 ml PO Q6H PRN #100 ml 03/21/18 [Rx] guaiFENesin [Mucinex] 1,200 mg PO Q12HR tablet.er 03/21/18 [Rx] predniSONE 10 mg PO DIRECTED #30 tab 03/21/18 [Rx] Follow up Appointment(s)/Referral(s): Joaquim Easley MD [Primary Care Provider] - 3 Days Amina Quinn DO [Doctor of Osteopathic Medicine] - 3 Days Ambulatory/Diagnostic Orders: Complete Blood Count w/diff [LAB.AMB] Time Frame: 3 Days, Location: Determined By Patient Activity/Diet/Wound Care/Special Instructions: No smoking
[2018-03-23 13:39] LABS: Alt. alternata IgE Class CLASS 0; Alternaria alternata IgE <0.35 kU/L (<0.35); Asperg. fumagatus IgE <0.35 kU/L (<0.35); Asperg. fumagatus IgE Class CLASS 0; Bermuda Grass IgE <0.35 kU/L (<0.35); Birch(Com.Silvr) IgE <0.35 kU/L (<0.35); Birch(Com.Silvr) IgE Class CLASS 0; Cat Epith & Dander IgE <0.35 kU/L (<0.35); Cat Epith & Dander IgE Class CLASS 0; Clad herbarum IgE <0.35 kU/L (<0.35); Cockroach IgE <0.35 kU/L (<0.35); Cottonwood IgE <0.35 kU/L (<0.35); Dermato. Pteronyssinus IgE 0.77 kU/L (<0.35); Dermato. farinae IgE 0.48 kU/L (<0.35); Dermato. farinae IgE Class CLASS I; Dog Dander IgE <0.35 kU/L (<0.35); Elm IgE <0.35 kU/L (<0.35); Maple (Box Elder) IgE <0.35 kU/L (<0.35); Maple (Box Elder) IgE Class CLASS 0; Mountain Cedar IgE <0.35 kU/L (<0.35); Mountain Cedar IgE Class CLASS 0; Mouse Urine IgE Class CLASS 0; Nettle IgE <0.35 kU/L (<0.35); Nettle IgE Class CLASS 0; Oak IgE <0.35 kU/L (<0.35); Penicillium notatum IgE Class CLASS 0; Rough Marshelder IgE <0.35 kU/L (<0.35); Rough Marshelder IgE Class CLASS 0; Timothy Grass IgE <0.35 kU/L (<0.35); White Ash IgE Class CLASS 0
[2018-03-25 14:17] LABS: Alpha 1 Anti-Trypsin 123 mg/dL (90 - 200)
[2018-03-28 01:40] LABS: Alternaria Alternata IgG 2.3 mcg/mL (< 13.6); Aspergillus fumigatus IgG Not detected (Not detected); Aureobasidium pullulans IgG < 2.0 mcg/mL (< 13.6); Cladosporium herbarium IgG 3.8 mcg/mL (< 14.7); Phoma ssp. IgG 4.1 mcg/mL (< 6.6); Saccaharomospora viridis Not detected (Not detected); Saccaharopoly. rectivirgula Not detected (Not detected)
== END 2018-03-21 14:00 | disposition home or self-care (01) ==
LOC: EC 17:29 → 5MS5E 19:16 → INTOOBSV 19:16
PROVIDERS: ADMIT Internal Medicine; ATTEND Internal Medicine
DX: J44.1 Chronic obstructive pulmonary disease with (acute) exacerbation (principal); J20.9 Acute bronchitis, unspecified; J44.0 Chronic obstructive pulmonary disease with (acute) lower respiratory infection; J96.01 Acute respiratory failure with hypoxia; J45.30 Mild persistent asthma, uncomplicated; Z90.49 Acquired absence of other specified parts of digestive tract; I73.9 Peripheral vascular disease, unspecified; Z87.01 Personal history of pneumonia (recurrent); Z79.51 Long term (current) use of inhaled steroids; Z79.899 Other long term (current) drug therapy; Z79.891 Long term (current) use of opiate analgesic; Z88.8 Allergy status to other drugs, medicaments and biological substances; F17.210 Nicotine dependence, cigarettes, uncomplicated; Z80.1 Family history of malignant neoplasm of trachea, bronchus and lung; J45.901 Unspecified asthma with (acute) exacerbation
CPT/HCPCS: 99285 ×2; 96374 ×2; 96361 ×4; 96376 ×2; 96372 ×2; 96375; 36415; 94640 ×3; 94760 ×2; 94667; 93005; 82103; 86003; 83880; 80053; 80048; 86001; 82104; 82550; 82553; 83605; 83735; 84484; 85025 ×2; 85610; 85730; 87040; 86609; 86606; 82785; 87070; 87205; 87502; 71046; G0378 ×3; J1644 ×2; J2920 ×2; J2930 ×2; J1885; C9113 ×2

== ENCOUNTER → 2018-10-09 | Outpatient (CLI) | payer MEDICARE, OTHER ==
[2018-10-09 14:55] LABS: Basophils # (A) 0.1 k/uL (0-0.2); Basophils % (A) 1 %; Eosinophils # (A) 0.6 k/uL (0-0.7); Eosinophils % (A) 6 %; HCT 44.1 % (34.0-46.0); HGB 14.7 gm/dL (11.4-16.0); Lymphocytes # (A) 4.5 k/uL (1.0-4.8); Lymphocytes % (A) 49 %; MCH 31.8 pg (25.0-35.0); MCHC 33.2 g/dL (31.0-37.0); MCV 95.8 fL (80.0-100.0); Mean Platelet Volume 7.1; Monocytes # (A) 0.7 k/uL (0-1.0); Monocytes % (A) 7 %; Neutrophils # (A) 3.1 k/uL (1.3-7.7); Neutrophils % (A) 34 %; Platelet Count 237 k/uL (150-450); RDW 13.2 % (11.5-15.5); WBC 9.1 k/uL (3.8-10.6)
[2018-10-10 03:06] LABS: Albumin 4.3 g/dL (3.80-4.90); Albumin/Globulin Ratio 2.39 (1.20-2.10); Anion Gap 10.3 mmol/L (4.00-12.00); Calcium 9.6 mg/dL (8.7-10.3); Carbon Dioxide 23.7 mmol/L (21.6-31.8); Globulin 1.8 g/dL (2.1-3.7); Potassium 4.1 mmol/L (3.5-5.5); Total Bilirubin 0.3 mg/dL (0.3-1.2); Total Protein 6.1 g/dL (6.2-8.2)
[2018-10-10 03:14] LABS: T4, Free (Free Thyroxine) 1.1 ng/dL (0.80-1.80)
== END | disposition home or self-care (01) ==
LOC: LABWHC1 14:27
PROVIDERS: ATTEND Family Medicine
DX: J44.9 Chronic obstructive pulmonary disease, unspecified (principal); F41.1 Generalized anxiety disorder; Z51.81 Encounter for therapeutic drug level monitoring
CPT/HCPCS: 36415; 80053; 84439; 84443; 85025

== ENCOUNTER 2018-10-22 15:54 | Emergency (ER) | payer MEDICARE, OTHER ==
[2018-10-22 15:59] VITALS: TEMP 98
[2018-10-22] MEDS ORDERED: IPRATROPIUM-ALBUTEROL 3 ML NEB INHALATION STA (16:43)
[2018-10-22] MEDS ORDERED: SODIUM CHLORIDE 0.9% 1,000 ML IV STA ×2 (16:52)
[2018-10-22 16:54] LABS: Basophils % (A) 1 %; Eosinophils # (A) 0.7 k/uL (0-0.7); Eosinophils % (A) 8 %; HCT 44.8 % (34.0-46.0); HGB 14.8 gm/dL (11.4-16.0); Lymphocytes # (A) 3.8 k/uL (1.0-4.8); Lymphocytes % (A) 46 %; MCV 93.8 fL (80.0-100.0); Mean Platelet Volume 6.9; Monocytes # (A) 0.5 k/uL (0-1.0); Monocytes % (A) 6 %; Neutrophils # (A) 3.1 k/uL (1.3-7.7); Neutrophils % (A) 37 %; Platelet Count 293 k/uL (150-450); RBC 4.78 m/uL (3.80-5.40); RDW 13.1 % (11.5-15.5); WBC 8.3 k/uL (3.8-10.6)
[2018-10-22 17:04] LABS: INR 1.1 (<1.2); Partial Thromboplastin Time 23.6 sec (22.0-30.0); Prothrombin Time 10.4 sec (9.0-12.0)
[2018-10-22 17:05] LABS: ALT 27 U/L (9-52); AST 23 U/L (14-36); Alkaline Phosphatase 53 U/L (38-126); Anion Gap 9 mmol/L; Blood Urea Nitrogen 10 mg/dL (7-17); Calcium 9.6 mg/dL (8.4-10.2); Carbon Dioxide 23 mmol/L (22-30); Chloride 108 mmol/L (98-107); Glucose 115 mg/dL (74-99); Potassium 4.6 mmol/L (3.5-5.1); Sodium 140 mmol/L (137-145); Total Bilirubin 0.5 mg/dL (0.2-1.3); Total Protein 6.8 g/dL (6.3-8.2)
[2018-10-22 17:09] LABS: Creatine Kinase 52 U/L (30-135)
[2018-10-22 17:15] LABS: Magnesium 1.7 mg/dL (1.6-2.3); Phosphorus 4.2 mg/dL (2.5-4.5)
--- NOTE | 2018-10-22 17:20 | XR ---
EXAMINATION TYPE: XR chest 2V DATE OF EXAM: 10/22/2018 COMPARISON: 03/19/2018 HISTORY: Right-sided pain TECHNIQUE: Frontal and lateral views of the chest are obtained. FINDINGS: Heart and mediastinum are normal. Lungs are clear. Diaphragm is normal. There are small os sified granuloma in the left lower lobe. Bony thorax is intact. IMPRESSION: No active cardiopulmonary disease. Normal heart.
[2018-10-22 17:22] LABS: Creatine Kinase MB 0.8 ng/mL (0.0-2.4); Troponin I <0.012 ng/mL (0.000-0.034)
[2018-10-22] MEDS ORDERED: LORazepam 2 MG/ML INJ IV STA (17:32)
[2018-10-22] MEDS ORDERED: methylPREDNISolone SOD SUCCI 125 MG/2 ML VIAL IV STA (17:32)
--- NOTE | 2018-10-22 18:11 | ED ---
SOB HPI - General Chief Complaint: Shortness of Breath Stated Complaint: RIGOBERTO Source: patient, RN notes reviewed, old records reviewed Mode of arrival: wheelchair Limitations: no limitations - History of Present Illness Initial Comments: This is a 32-year-old female the ER for evaluation of COPD exacerbation difficulty breathing mild anxiety. Patient is recent hospital admission for pneumonia, states she has been improved until today, denies chest pain no fevers no travel history, denies leg or calf pain. Patient is doing breathing she was at home with that she did not help quite as much today as he usually 2. MD Complaint: shortness of breath, cough -: hour(s) Radiation: other (No pain) Severity: mild Consistency: constant Improves With: bronchodilators Worsens With: movement Known History Of: COPD Context: recent URI, recent illness Associated Symptoms: cough, sputum production Treatments Prior to Arrival: none - Related Data Home Medications Medication Instructions Recorded Confirmed Ibuprofen [Motrin] 800 mg PO Q8HR PRN 11/20/16 10/22/18 Cholecalciferol [Vitamin D3] 1,000 unit PO DAILY 01/03/17 10/22/18 Fish Oil/Dha/Epa [Fish Oil 1,200 1 cap PO DAILY 01/03/17 10/22/18 mg Fish Oil] ALPRAZolam [Xanax] 0.25 mg PO HS 03/19/18 10/22/18 Garlic 1 tab PO DAILY 03/19/18 10/22/18 Melatonin 5 mg PO HS 03/19/18 10/22/18 oxyCODONE HCL [oxyCODONE HCL ER] 15 mg PO Q12H 03/19/18 10/22/18 Albuterol Inhaler [Ventolin Hfa 2 puff INHALATION RT-Q4H PRN 10/22/18 10/22/18 Inhaler] Ascorbic Acid [Vitamin C] 1,000 mg PO DAILY 10/22/18 10/22/18 Cyanocobalamin (Vitamin B-12) 1,000 mcg PO DAILY 10/22/18 10/22/18 [Vitamin B-12] Previous Rx's Medication Instructions Recorded guaiFENesin [Mucinex] 1,200 mg PO Q12HR tablet.er 03/21/18 Azithromycin [Zithromax Z-pack] 0 mg PO DIRECTED #1 pack 10/22/18 predniSONE 50 mg PO DAILY #5 tab 10/22/18 Allergies Allergy/AdvReac Type Severity Reaction Status Date / Time prednisone AdvReac "KIDNEY Verified 10/22/18 17:08 PAIN" FROM HIGH DOSES Review of Systems ROS Statement: Those systems with pertinent positive or pertinent negative responses have been documented in the HPI. ROS Other: All systems not noted in ROS Statement are negative. Past Medical History Past Medical History: Asthma, COPD, Pneumonia Additional Past Medical History / Comment(s): PAD, states chronic pain on r side of body History of Any Multi-Drug Resistant Organisms: None Reported Past Surgical History: Cholecystectomy, Hernia Repair, Hysterectomy, Orthopedic Surgery Additional Past Surgical History / Comment(s): RIGHT KNEE ARTHROSCOPY; aortic abdominal stent-2006, ABDOMINAL AORTIC BYPASS-2009, HIATAL HERNIA REPAIR with mesh- 2011, choleycystectomy-2010, hysterectomy. Past Anesthesia/Blood Transfusion Reactions: No Reported Reaction Past Psychological History: No Psychological Hx Reported Smoking Status: Smoker, current status unknown Past Alcohol Use History: None Reported, Occasional Past Drug Use History: Marijuana - Past Family History Father Family Medical History: Cancer Additional Family Medical History / Comment(s): passed from lung ca Mother Additional Family Medical History / Comment(s): ALS General Exam Limitations: no limitations General appearance: alert, in no apparent distress, anxious Head exam: Present: atraumatic, normocephalic, normal inspection Eye exam: Present: normal appearance, PERRL, EOMI. Absent: scleral icterus, conjunctival injection, periorbital swelling ENT exam: Present: normal exam, mucous membranes moist Neck exam: Present: normal inspection. Absent: tenderness, meningismus, lymphadenopathy Respiratory exam: Present: wheezes. Absent: respiratory distress, rales, rhonchi, stridor Cardiovascular Exam: Present: regular rate, normal rhythm, normal heart sounds. Absent: systolic murmur, diastolic murmur, rubs, gallop, clicks GI/Abdominal exam: Present: soft, normal bowel sounds. Absent: distended, tenderness, guarding, rebound, rigid Extremities exam: Present: normal inspection, full ROM, normal capillary refill. Absent: tenderness, pedal edema, joint swelling, calf tenderness Back exam: Present: normal inspection Neurological exam: Present: alert, oriented X3, CN II-XII intact Psychiatric exam: Present: normal affect, normal mood Skin exam: Present: warm, dry, intact, normal color. Absent: rash Course Vital Signs 10/22/18 10/22/18 10/22/18 15:57 16:43 16:51 Temperature 98.0 F Pulse Rate 88 77 Respiratory 18 20 Rate Blood Pressure 178/81 O2 Sat by Pulse 94 L Oximetry 10/22/18 10/22/18 17:02 19:41 Temperature Pulse Rate 83 88 Respiratory 18 Rate Blood Pressure 144/81 O2 Sat by Pulse 94 L Oximetry - Reevaluation(s) Reevaluation #1: medical record is reviewed patient able to ambulate withous SOB Medical Decision Making - Medical Decision Making 52 female the ER for evaluation increased cough and congestion, mild COPD exacerbation, currently symptomatic discharged - Lab Data Result diagrams: 10/22/18 16:25 10/22/18 16:25 Lab Results 10/22/18 10/22/18 10/22/18 Range/Units 16:25 16:25 16:25 WBC 8.3 (3.8-10.6) k/uL RBC 4.78 (3.80-5.40) m/uL Hgb 14.8 (11.4-16.0) gm/dL Hct 44.8 (34.0-46.0) % MCV 93.8 (80.0-100.0) fL MCH 31.0 (25.0-35.0) pg MCHC 33.0 (31.0-37.0) g/dL RDW 13.1 (11.5-15.5) % Plt Count 293 (150-450) k/uL Neutrophils % 37 % Lymphocytes % 46 % Monocytes % 6 % Eosinophils % 8 % Basophils % 1 % Neutrophils # 3.1 (1.3-7.7) k/uL Lymphocytes # 3.8 (1.0-4.8) k/uL Monocytes # 0.5 (0-1.0) k/uL Eosinophils # 0.7 (0-0.7) k/uL Basophils # 0.0 (0-0.2) k/uL PT (9.0-12.0) sec INR (<1.2) APTT (22.0-30.0) sec Sodium 140 (137-145) mmol/L Potassium 4.6 (3.5-5.1) mmol/L Chloride 108 H (98-107) mmol/L Carbon Dioxide 23 (22-30) mmol/L Anion Gap 9 mmol/L BUN 10 (7-17) mg/dL Creatinine 0.66 (0.52-1.04) mg/dL Est GFR (CKD-EPI)AfAm >90 (>60 ml/min/1.73 sqM) Est GFR (CKD-EPI)NonAf >90 (>60 ml/min/1.73 sqM) Glucose 115 H (74-99) mg/dL Calcium 9.6 (8.4-10.2) mg/dL Phosphorus (2.5-4.5) mg/dL Magnesium (1.6-2.3) mg/dL Total Bilirubin 0.5 (0.2-1.3) mg/dL AST 23 (14-36) U/L ALT 27 (9-52) U/L Alkaline Phosphatase 53 (38-126) U/L Total Creatine Kinase 52 (30-135) U/L CK-MB (CK-2) 0.8 (0.0-2.4) ng/mL CK-MB (CK-2) Rel Index 1.5 Troponin I <0.012 (0.000-0.034) ng/mL Total Protein 6.8 (6.3-8.2) g/dL Albumin 4.0 (3.5-5.0) g/dL 10/22/18 10/22/18 Range/Units 16:25 16:25 WBC (3.8-10.6) k/uL RBC (3.80-5.40) m/uL Hgb (11.4-16.0) gm/dL Hct (34.0-46.0) % MCV (80.0-100.0) fL MCH (25.0-35.0) pg MCHC (31.0-37.0) g/dL RDW (11.5-15.5) % Plt Count (150-450) k/uL Neutrophils % % Lymphocytes % % Monocytes % % Eosinophils % % Basophils % % Neutrophils # (1.3-7.7) k/uL Lymphocytes # (1.0-4.8) k/uL Monocytes # (0-1.0) k/uL Eosinophils # (0-0.7) k/uL Basophils # (0-0.2) k/uL PT 10.4 (9.0-12.0) sec INR 1.1 (<1.2) APTT 23.6 (22.0-30.0) sec Sodium (137-145) mmol/L Potassium (3.5-5.1) mmol/L Chloride (98-107) mmol/L Carbon Dioxide (22-30) mmol/L Anion Gap mmol/L BUN (7-17) mg/dL Creatinine (0.52-1.04) mg/dL Est GFR (CKD-EPI)AfAm (>60 ml/min/1.73 sqM) Est GFR (CKD-EPI)NonAf (>60 ml/min/1.73 sqM) Glucose (74-99) mg/dL Calcium (8.4-10.2) mg/dL Phosphorus 4.2 (2.5-4.5) mg/dL Magnesium 1.7 (1.6-2.3) mg/dL Total Bilirubin (0.2-1.3) mg/dL AST (14-36) U/L ALT (9-52) U/L Alkaline Phosphatase (38-126) U/L Total Creatine Kinase (30-135) U/L CK-MB (CK-2) (0.0-2.4) ng/mL CK-MB (CK-2) Rel Index Troponin I (0.000-0.034) ng/mL Total Protein (6.3-8.2) g/dL Albumin (3.5-5.0) g/dL - EKG Data -: EKG Interpreted by Me (EKG shows sinus rhythm rate of 84, IL 134, QRS 76, QTc 413) - Radiology Data Radiology results: report reviewed (Chest x-rays negative for acute diseas), image reviewed Disposition Clinical Impression: COPD (chronic obstructive pulmonary disease) case management patient Disposition: HOME SELF-CARE Condition: Fair Instructions: Acute Bronchitis (ED), Chronic Bronchitis (ED) Prescriptions: Azithromycin [Zithromax Z-pack] 0 mg PO DIRECTED #1 pack predniSONE 50 mg PO DAILY #5 tab Is patient prescribed a controlled substance at d/c from ED?: No Referrals: London Topete MD [Primary Care Provider] - 1-2 days
[2018-10-22 19:42] VITALS: BP 144/81; PULSE 88; RESP 18
== END 2018-10-22 19:47 | disposition home or self-care (01) ==
LOC: EC 15:54
DX: J44.1 Chronic obstructive pulmonary disease with (acute) exacerbation (principal); F41.9 Anxiety disorder, unspecified; F17.200 Nicotine dependence, unspecified, uncomplicated; Z79.891 Long term (current) use of opiate analgesic; Z79.899 Other long term (current) drug therapy; Z88.8 Allergy status to other drugs, medicaments and biological substances
CPT/HCPCS: 99285; 96374; 96375; 96361 ×2; 36415; 94640; 93005; 80053; 82550; 82553; 83735; 84100; 84484; 85025; 85610; 85730; 71046; J2060; J2930

== ENCOUNTER → 2018-12-31 | Outpatient (CLI) | payer MEDICARE, OTHER | END | disposition home or self-care (01) | LOC: LABWHC1 12:14 | PROVIDERS: ATTEND Internal Medicine Critical Care Medicine | DX: R05 Cough (principal); J45.909 Unspecified asthma, uncomplicated | CPT/HCPCS: 36415; 82785; 85008 ==

== ENCOUNTER → 2019-04-05 | Outpatient (CLI) | payer MEDICARE, OTHER ==
[2019-04-05 16:32] LABS: Basophils % (A) 1 %; Eosinophils # (A) 0.1 k/uL (0-0.7); Eosinophils % (A) 1 %; HCT 41.6 % (34.0-46.0); HGB 13.5 gm/dL (11.4-16.0); Lymphocytes # (A) 2.4 k/uL (1.0-4.8); Lymphocytes % (A) 38 %; MCH 30.6 pg (25.0-35.0); MCHC 32.5 g/dL (31.0-37.0); MCV 94.2 fL (80.0-100.0); Mean Platelet Volume 7.5; Monocytes # (A) 0.6 k/uL (0-1.0); Monocytes % (A) 10 %; Neutrophils # (A) 3.1 k/uL (1.3-7.7); Neutrophils % (A) 49 %; Platelet Count 299 k/uL (150-450); RBC 4.42 m/uL (3.80-5.40); WBC 6.4 k/uL (3.8-10.6)
[2019-04-05 23:57] LABS: Albumin 4.2 g/dL (3.80-4.90); Albumin/Globulin Ratio 2.33 (1.60-3.17); Calcium 9.3 mg/dL (8.7-10.3); Globulin 1.8 g/dL (1.6-3.3); Potassium 4.2 mmol/L (3.5-5.5); Total Bilirubin 0.2 mg/dL (0.3-1.2)
== END | disposition home or self-care (01) ==
LOC: LABWHC1 15:33
PROVIDERS: ATTEND Family Medicine
DX: E66.01 Morbid (severe) obesity due to excess calories (principal); G47.09 Other insomnia; F41.1 Generalized anxiety disorder
CPT/HCPCS: 36415; 80053; 84439; 84443; 85025

== ENCOUNTER → 2019-09-06 | Outpatient (CLI) | payer MEDICARE, OTHER ==
--- NOTE | 2019-09-06 10:34 | XR ---
EXAMINATION TYPE: XR chest 2V DATE OF EXAM: 09/06/2019 COMPARISON: 10/22/2018 x-ray and CT chest dated 10/27/2014 HISTORY: Shortness of breath with history of asthma TECHNIQUE: Frontal and lateral views of the chest are obtained. FINDINGS: Left basilar subcentimeter nodule represents a granuloma seen on the CT dated 10/27/2014. Pu lmonary hyperinflation. There is no focal air space opacity, pleural effusion, or pneumothorax seen. The cardiac silhouette size is within normal limits. The osseous structures are intact. Mild mult ilevel degenerative changes of the spine. IMPRESSION: No acute cardiopulmonary process. Pulmonary hyperinflation in this patient with known as thma.
== END | disposition home or self-care (01) ==
LOC: RADXRMAIN 09:55
PROVIDERS: ATTEND Nurse Practitioner Family
DX: J45.909 Unspecified asthma, uncomplicated (principal); J98.11 Atelectasis
CPT/HCPCS: 71046

== ENCOUNTER → 2019-12-03 | Outpatient (CLI) | payer MEDICARE, OTHER ==
[2019-12-03 12:51] LABS: Appearance,Urine Clear (Clear); Bacteria,Urine Rare /hpf; Bilirubin,Urine Negative (Negative); Blood,Urine Negative (Negative); Color,Urine Yellow; Glucose,Urine (UA) Negative (Negative); Ketones,Urine Negative (Negative); Leukocyte Esterase,Urine Large (Negative); Mucus,Urine Rare /hpf; Nitrite,Urine Negative (Negative); PH, Urine 5.5 (5.0-8.0); Protein,Urine Negative (Negative); RBC,Urine 2 /hpf (0-5); Specific Gravity,Urine 1.011 (1.001-1.035); Squamous Epithelial Cell,Urine 2 /hpf (0-4); Urobilinogen,Urine <2.0 mg/dL (<2.0); WBC,Urine 34 /hpf (0-5)
[2019-12-03 13:19] LABS: Basophils # (A) 0.1 k/uL (0-0.2); Basophils % (A) 1 %; Eosinophils # (A) 0.2 k/uL (0-0.7); Eosinophils % (A) 3 %; HCT 45.1 % (34.0-46.0); HGB 15.3 gm/dL (11.4-16.0); Lymphocytes # (A) 2.8 k/uL (1.0-4.8); Lymphocytes % (A) 35 %; MCH 31.3 pg (25.0-35.0); MCHC 33.8 g/dL (31.0-37.0); MCV 92.6 fL (80.0-100.0); Monocytes # (A) 0.6 k/uL (0-1.0); Monocytes % (A) 7 %; Neutrophils # (A) 4.1 k/uL (1.3-7.7); Neutrophils % (A) 52 %; Platelet Count 303 k/uL (150-450); RBC 4.87 m/uL (3.80-5.40); RDW 13.1 % (11.5-15.5); WBC 7.9 k/uL (3.8-10.6)
[2019-12-03 14:54] LABS: Erythrocyte Sedimentation Rate 8 mm/hr (0-20)
[2019-12-03 19:06] LABS: Protein, Total 6.4 g/dL (6.2-8.2)
[2019-12-03 19:08] LABS: Streptolysin O Ab(ASO) 72 IU/mL (0-200)
[2019-12-03 19:29] LABS: Hemoglobin A1C 5.6 % (4.0-6.0)
[2019-12-03 19:33] LABS: Creatine Kinase 79 U/L (26-186); LDH 207 U/L (120-246); Phosphorus 4.2 mg/dL (2.4-5.1); Rheumatoid Factor, Qnt 12 IU/mL (0-15); Uric Acid 3.7 mg/dL (2.9-7.7)
[2019-12-03 19:34] LABS: ALT 18 U/L (8-44); AST 21 U/L (13-35); African American GFR (CKD) 96.2 (60.0-200.0); Albumin/Globulin Ratio 2.56 (1.60-3.17); Alkaline Phosphatase 70 U/L (41-126); C Reactive Protein <0.4 mg/dL (0.0-0.8); Calcium 9.8 mg/dL (8.7-10.3); Carbon Dioxide 23.8 mmol/L (21.6-31.8); Chloride 103 mmol/L (96-109); Globulin 1.8 g/dL (1.6-3.3); Glucose 82 mg/dL (70-110); Potassium 4.2 mmol/L (3.5-5.5); Sodium 136 mmol/L (135-145); Total Bilirubin 0.4 mg/dL (0.3-1.2); Total Protein 6.4 g/dL (6.2-8.2)
[2019-12-03 19:50] LABS: Cyclic Citrull Pep IgG Unit <0.5 U/mL; Cyclic Citrullinated Pep IgG NEGATIVE (NEGATIVE)
[2019-12-03 20:27] LABS: Hepatitis C IgG Antibody Reactive (Non-Reactive)
[2019-12-04 09:08] LABS: Angiotensin-1 Converting Enz. 40 U/L (8-52)
[2019-12-04 13:27] LABS: HLA B27 NEGATIVE
[2019-12-06 11:44] LABS: Vitamin D, 1, 25-Dihydroxy 18 pg/mL (20 - 79)
[2019-12-06 13:30] LABS: Albumin 3.77 g/dL (3.80-4.90); Gamma Globulin 0.67 g/dL (0.70-1.50)
[2019-12-08 06:35] LABS: Vit B1(Thiamine) 77 ug/L (38-122)
== END | disposition home or self-care (01) ==
LOC: LABWHC1 11:21
PROVIDERS: ATTEND Physical Medicine & Rehabilitation
DX: G89.4 Chronic pain syndrome (principal); R20.2 Paresthesia of skin; M50.120 Mid-cervical disc disorder, unspecified level; M70.61 Trochanteric bursitis, right hip; M25.511 Pain in right shoulder; M75.41 Impingement syndrome of right shoulder; M25.561 Pain in right knee; M25.562 Pain in left knee; M17.11 Unilateral primary osteoarthritis, right knee; M54.5 Low back pain; M47.817 Spondylosis without myelopathy or radiculopathy, lumbosacral region; M51.17 Intervertebral disc disorders with radiculopathy, lumbosacral region; M75.42 Impingement syndrome of left shoulder; M25.512 Pain in left shoulder; M16.11 Unilateral primary osteoarthritis, right hip; G60.9 Hereditary and idiopathic neuropathy, unspecified
CPT/HCPCS: 36415; 80053; 81001; 82164; 82306; 82310; 82550; 82553; 82607; 82652; 83036; 83516; 83520; 83615; 83970; 84100; 84165; 84207; 84425; 84439; 84443; 84550; 85025; 85652; 86038; 86060; 86140; 86200; 86235; 86431; 86618; 86803; 86812; 87522

== ENCOUNTER → 2021-06-04 | Outpatient (CLI) | payer MEDICARE, OTHER ==
--- NOTE | 2021-06-04 09:02 | CT ---
EXAMINATION TYPE: CT knee RT wo con DATE OF EXAM: 06/04/2021 COMPARISON: None HISTORY: Right knee pain CT DLP: 396.6 mGycm Automated exposure control for dose reduction was used. Unenhanced CT of the right knee was performed in the axial coronal and sagittal planes. Bone and soft tissue window settings are reviewed. FINDINGS: There has been prior right ACL reconstruction with the tibial and femoral tunnels noted. A normal-abilio earing ACL is not identified at this time. Please note MRI is more sensitive and specific for ACL pat hology. There is moderate narrowing of the medial tibial -femoral joint space mild narrowing lateral tibiofemoral joint space and patellofemoral joint space. Spur formation identified. I do not see evid ence for an acute fracture. No soft tissue mass identified this time. IMPRESSION: 1. CHANGES OF OSTEOARTHRITIS. 2. NORMAL-APPEARING ACL IS NOT IDENTIFIED THE PATIENT IS STATUS POST ACL RECONSTRUCTION. CORRELATE CL INICALLY.
== END | disposition home or self-care (01) ==
LOC: RADCTMAIN 07:42
PROVIDERS: ATTEND Family Medicine
DX: M17.11 Unilateral primary osteoarthritis, right knee (principal)

== ENCOUNTER → 2022-02-13 | Outpatient (CLI) | payer MEDICARE, OTHER ==
--- NOTE | 2022-02-13 09:30 | CT ---
EXAMINATION TYPE: CT abdomen pelvis wo con DATE OF EXAM: 02/13/2022 COMPARISON: CT dated 01/09/2016 HISTORY: Right lower abdominal pain radiating around to back. CT DLP: 927.1 mGycm Automated exposure control for dose reduction was used. TECHNIQUE: Helical acquisition of images was performed from the lung bases through the pelvis. No IV contrast administration. FINDINGS: LUNG BASES: Stable left basal calcified pulmonary granuloma. Minimal right basal pulmonary atelectasi s. LIVER/GB: Previous cholecystectomy. No definite hepatic focal lesion by this nonenhanced CT scan. Sta ble dilated CHD likely related to post cholecystectomy status. PANCREAS: Atrophic with scattered multiple tiny calcifications likely representing sequela of previou s pancreatitis. SPLEEN: No significant abnormality is seen. ADRENALS: No significant abnormality is seen. KIDNEYS: Left upper pole renal cyst measuring 15 mm compared to 6 mm previously. It is suboptimally a ssessed by this nonenhanced CT scan. Unremarkable kidneys otherwise. FREE AIR: No free air is visualized RETROPERITONEAL ADENOPATHY: None visualized REPRODUCTIVE ORGANS: Previous hysterectomy. No gross adnexal mass. URINARY BLADDER: Grossly unremarkable PELVIC ADENOPATHY: None visualized. OSSEOUS STRUCTURES: No aggressive bone lesion. BOWEL: Unremarkable nondistended stomach, duodenum and small bowel. Colonic diverticulosis most evid ent involving the sigmoid colon. Scattered segments of colonic wall thickening, please correlate with colonoscopy results. Fecal loading of the colon which may suggest constipation. Hyperdensities seen within the appendix yet without evidence of acute appendicitis. OTHER: Arterial atherosclerotic calcification with previous aortobifemoral bypass grafts. No sizable ascites. Anterior abdominal wall subcutaneous scar tissue. IMPRESSION: No definite acute abnormality or suspicious lesion seen in the abdomen or the pelvis. Fecal loading o f the colon suggestive of constipation. Hyperdensities within the appendix, possibly representing abilio endicolith yet without CT evidence of acute appendicitis. Other incidental findings as described guzman escobar.
== END | disposition home or self-care (01) ==
LOC: RADCTMAIN 07:17
PROVIDERS: ATTEND Family Medicine
DX: R10.30 Lower abdominal pain, unspecified (principal)
CPT/HCPCS: 74176

== ENCOUNTER → 2023-02-28 | Outpatient (CLI) | payer MEDICARE, OTHER ==
--- NOTE | 2023-02-28 11:13 | XR ---
EXAMINATION TYPE: XR lumbosacral spine min 4V DATE OF EXAM: 02/28/2023 11:06 AM INDICATION: Patient age:Female; 57 years old; Reason for study: M51.86; [facility]. COMPARISON: CT abdomen and pelvis 02/28/2022 TECHNIQUE: Frontal, lateral, bilateral oblique radiograph of the lumbar spine were obtained. FINDINGS: There are 5 lumbar type vertebral bodies identified. No evidence of any acute osseous patho logy. No evidence of loss of vertebral body height is seen. There is normal alignment of the lumbar vertebral bodies. Mild bilateral facet arthropathy with suggested mild bilateral neural foraminal scotty nosis at L4-L5. Common iliac artery stents identified with multiple surgical clips along the midline abdomen. Cholecystectomy clips in the right upper quadrant. IMPRESSION: 1. No acute process. 2. Mild facet arthropathy at L4-L5.
--- NOTE | 2023-02-28 11:15 | XR ---
EXAMINATION TYPE: XR cervical spine comp DATE OF EXAM: 02/28/2023 11:06 AM INDICATION: Patient age:Female; 57 years old; Reason for study: M51.86; [facility]. COMPARISON: None TECHNIQUE: The cervical spine was imaged in frontal, lateral, bilateral oblique, swimmer's, and open- mouth projections. Frontal, lateral, odontoid and bilateral oblique. FINDINGS: The osseous structures show normal alignment without evidence of an acute fracture. There are osteoph ytes noted throughout the cervical spine on the anterior and lateral aspects of the vertebral bodies. Multilevel disc space narrowing with endplate sclerosis. Multilevel facet arthropathy. Mild bilatera l neural foraminal stenosis suggested at C5-C6. Pedicles are intact. Soft tissues are within normal limits. The odontoid appears intact. IMPRESSION: 1. No fracture or dislocation. 2. Mild degenerative disc disease changes of the cervical spine.
== END | disposition home or self-care (01) ==
LOC: RADXRMAIN 10:30
PROVIDERS: ATTEND Physical Medicine & Rehabilitation
DX: M51.86 Other intervertebral disc disorders, lumbar region (principal); M47.816 Spondylosis without myelopathy or radiculopathy, lumbar region; M50.30 Other cervical disc degeneration, unspecified cervical region
CPT/HCPCS: 72050; 72110